=== PATIENT | male | born 1940 | race Caucasian/White ===

== ENCOUNTER 2019-07-02 16:36 | Inpatient (IN) | payer OTHER ==
[~2019-07-02] VITALS: Ht 180.3 cm; Wt 103.7 kg
[2019-07-02] MEDS ORDERED: FUROSEMIDE 40 MG/4 ML VIAL IV ONE (17:45)
[2019-07-02 17:46] LABS: Basophils # (auto) 0 uL; Basophils % (auto) 0.5 % (0.0-2.0); Eosinophils # (auto) 0.3 uL; Hematocrit 39.6 % (41.0-53.0); Hemoglobin 12.3 g/dL (13.5-17.5); Lymphocytes # (auto) 1.3 uL; Lymphocytes % (auto) 21.6 % (10.0-50.0); Mean Corpuscular Hemoglobin 26.2 pg (28.0-32.0); Mean Corpuscular Hgb Conc. 31.1 g/dL (32.0-36.0); Mean Corpuscular Volume 84.2 fL (80.0-100.0); Monocytes # (auto) 0.5 uL; Monocytes % (auto) 8.7 % (0.0-12.0); Neutrophils # (auto) 3.7 uL; Neutrophils % (auto) 64.2 % (37.0-80.0); Nucleated Red Blood Cells % 0.1 %; Platelet Count (auto) 201 10^3/uL (140-450); Red Cell Distribution Width 16.7 % (11.8-14.3); White Blood Cell 5.8 10^3/uL (4.4-10.8)
[2019-07-02 17:56] LABS: Alanine Aminotransferase 36 U/L (16-61); Albumin 3.3 g/dL (3.4-5.0); Anion Gap 7 (5-15); Aspartate Aminotransferase 24 U/L (15-37); BUN/Creatinine Ratio 19.7; Blood Urea Nitrogen 13 mg/dL (7-18); Calcium 8.6 mg/dL (8.5-10.1); Carbon Dioxide 31 mmol/L (21-32); Chloride 103 mmol/L (98-107); GFR African American 150 mL/min; GFR Non-African American 124 mL/min; Glucose 105 mg/dL (74-106); Magnesium 1.8 mg/dL (1.6-2.6); Potassium 3.5 mmol/L (3.5-5.1); Sodium 141 mmol/L (136-145)
[2019-07-02 18:01] LABS: Alkaline Phosphatase 68 U/L (45-117); Bilirubin, Total 1.2 mg/dL (0.2-1.0); Total Protein 6.1 g/dL (6.4-8.2)
[2019-07-02 19:03] LABS: Urine Bacteria NONE SEEN /hpf (None Seen); Urine Blood Negative /uL (Negative); Urine Specific Gravity 1.008 (1.001-1.035); Urine WBC 1 /hpf (0 - 3)
[2019-07-02] MEDS ORDERED: TEMAZEPAM 15 MG CAP PO PRN (21:45)
[2019-07-02] MEDS ORDERED: DEXTROSE (50%) 50ML SYRG IV PRN (21:45)
[2019-07-02] MEDS ORDERED: HYDROcodone-ACET 5/325MG TAB PO PRN (21:45)
[2019-07-02] MEDS ORDERED: ONDANSETRON HCL 4 MG/2 ML VIAL IV PRN (21:45)
[2019-07-02] MEDS ORDERED: ACETAMINOPHEN 325 MG TAB PO PRN (21:45)
[2019-07-02] MEDS ORDERED: MORPHINE SULF INJ 2 MG/ML SYRINGE 1ML IV PRN (21:45)
[2019-07-02] MEDS ORDERED: NITROGLYCERIN 0.4 MG SL TAB SL PRN (21:45)
--- NOTE | 2019-07-02 23:00 | NUR ---
Telemetry admit from ER NATALI IBRAHIM admitted to Telemetry unit. Patient oriented to DWAYNE BUCK RN primary RN, unit, room, bed, and unit policies regarding patient care and visiting hours. Patient now on continuous telemetry monitoring, tele box #40 and telemetry reading on arrival to unit is Afib. Patient placed on bedside oxygen, weighed by bedscale and encouraged to call if they need something. All questions and concerns addressed, patient verbalized understanding.
[2019-07-02 23:05] VITALS: BP 130/87
[2019-07-02 23:24] LABS: INR 1.89 (0.9-1.15); Partial Thromboplastin Time 30.3 sec (23.64-32.05)
[2019-07-02] MEDS: InsuLIN REG 1unit/0.01ml Soln (100units/ml) SC SCH (23:46)
[2019-07-02] MEDS: ACCU-CHEK COMFORT CURVE STRIP VI SCH (23:47)
[2019-07-02] MEDS: FAMOTIDINE 20 MG TAB PO SCH (23:47)
[2019-07-02] MEDS: ATORVASTATIN 20 MG TAB PO SCH (23:47)
[2019-07-03] MEDS ORDERED: INFLUENZA QUAD 2019-2020 0.5ml SYRG IM ONE
[2019-07-03 00:28] VITALS: BP 130/87
[2019-07-03 05:00] VITALS: BP 126/72
[2019-07-03] MEDS: ACCU-CHEK COMFORT CURVE STRIP VI SCH ×3 (05:34→17:58)
[2019-07-03] MEDS: InsuLIN REG 1unit/0.01ml Soln (100units/ml) SC SCH ×3 (05:35→17:58)
[2019-07-03 06:48] LABS: Basophils # (auto) 0 uL; Eosinophils # (auto) 0.3 uL; Lymphocytes # (auto) 1.5 uL; Mean Corpuscular Hgb Conc. 31.7 g/dL (32.0-36.0); Monocytes # (auto) 0.6 uL; Neutrophils # (auto) 3.2 uL; Nucleated Red Blood Cells % 0.1 %; Red Cell Distribution Width 16.9 % (11.8-14.3); White Blood Cell 5.6 10^3/uL (4.4-10.8)
[2019-07-03 06:51] LABS: Basophils % (auto) 0.7 % (0.0-2.0); Eosinophils % (auto) 4.7 % (0.0-7.0); Hemoglobin 11.7 g/dL (13.5-17.5); Lymphocytes % (auto) 26.6 % (10.0-50.0); Mean Corpuscular Hemoglobin 26.4 pg (28.0-32.0); Mean Corpuscular Volume 83.3 fL (80.0-100.0); Monocytes % (auto) 10.7 % (0.0-12.0); Neutrophils % (auto) 57.3 % (37.0-80.0); Platelet Count (auto) 172 10^3/uL (140-450); Red Blood Cells 4.44 10^6/uL (4.5-5.90)
[2019-07-03 07:11] LABS: BUN/Creatinine Ratio 19.4; Calcium 8.7 mg/dL (8.5-10.1); Potassium 3.2 mmol/L (3.5-5.1)
--- NOTE | 2019-07-03 07:30 | NUR ---
Opening Shift Note Assumed care of patient, awake and alert. No S/S of distress/SOB or pain. Instructed on POC and to call for assist PRN, will continue to monitor for changes Q1hr and PRN.
[2019-07-03 08:38] VITALS: BP 127/85
[2019-07-03] MEDS: DILTIAZEM HCL 120MG ER CAP PO SCH (09:39)
[2019-07-03] MEDS: FAMOTIDINE 20 MG TAB PO SCH ×2 (09:40→21:24)
[2019-07-03] MEDS ORDERED: ATENOLOL 50 MG TAB PO SCH (10:00)
[2019-07-03] MEDS ORDERED: POTASSIUM CHL 20 Meq TABLET PO ONE (12:00)
[2019-07-03 12:38] VITALS: BP 121/77
[2019-07-03 13:45] LABS: INR 1.85 (0.9-1.15)
[2019-07-03] MEDS: FUROSEMIDE 40 MG/4 ML VIAL IV SCH (14:22)
[2019-07-03 17:00] VITALS: BP 113/68
[2019-07-03] MEDS ORDERED: WARFARIN SODIUM 2 MG TAB PO ONE (17:00)
--- NOTE | 2019-07-03 19:15 | NUR ---
Opening Shift Note Received report from johnny Butler RN. Assumed care of patient, awake and alert. No S/S of distress/SOB or pain. Instructed on POC and to call for assist PRN, will continue to monitor for changes Q1hr and PRN. Bed placed in lowest position, bed alarm turn on and call light within reach.
--- NOTE | 2019-07-03 19:17 | NUR ---
CLOSING NOTES PT RESTING IN BED. FAMILY AT BEDSIDE. DENIES PAIN OR SOB. VERBALIZED COMFORT. NO DISTRESS NOTED.
[2019-07-03] MEDS: ATORVASTATIN 20 MG TAB PO SCH (21:24)
[2019-07-03 22:48] VITALS: BP 112/63
[2019-07-04] MEDS: ACCU-CHEK COMFORT CURVE STRIP VI SCH ×3 (00:27→12:00)
[2019-07-04 05:00] VITALS: BP 111/72
[2019-07-04] MEDS: InsuLIN REG 1unit/0.01ml Soln (100units/ml) SC SCH ×3 (06:00→12:00)
[2019-07-04 06:25] LABS: INR 1.88 (0.9-1.15)
[2019-07-04 06:27] LABS: Potassium 3.2 mmol/L (3.5-5.1)
[2019-07-04 06:29] LABS: Basophils # (auto) 0 uL; Eosinophils # (auto) 0.3 uL; Neutrophils # (auto) 3.4 uL; Nucleated Red Blood Cells % 0.1 %; White Blood Cell 5.4 10^3/uL (4.4-10.8)
[2019-07-04 06:33] LABS: Basophils % (auto) 0.4 % (0.0-2.0); Eosinophils % (auto) 4.9 % (0.0-7.0); Hematocrit 36.1 % (41.0-53.0); Hemoglobin 11.5 g/dL (13.5-17.5); Lymphocytes % (auto) 19.1 % (10.0-50.0); Mean Corpuscular Hemoglobin 26.5 pg (28.0-32.0); Mean Corpuscular Volume 82.9 fL (80.0-100.0); Monocytes # (auto) 0.7 uL; Monocytes % (auto) 12.4 % (0.0-12.0); Neutrophils % (auto) 63.2 % (37.0-80.0); Platelet Count (auto) 160 10^3/uL (140-450); Red Blood Cells 4.36 10^6/uL (4.5-5.90); Red Cell Distribution Width 16.7 % (11.8-14.3)
[2019-07-04 06:35] LABS: BUN/Creatinine Ratio 23.8; Calcium 8.4 mg/dL (8.5-10.1); Magnesium 2.1 mg/dL (1.6-2.6)
--- NOTE | 2019-07-04 07:50 | NUR ---
Patient sitting on bed, awake, oriented x4, on O2 at 2 LPM. No acute distress noted.
[2019-07-04 09:00] VITALS: BP 127/82
[2019-07-04] MEDS: FUROSEMIDE 40 MG/4 ML VIAL IV SCH (09:58)
[2019-07-04] MEDS: DILTIAZEM HCL 120MG ER CAP PO SCH (09:59)
[2019-07-04] MEDS: FAMOTIDINE 20 MG TAB PO SCH (09:59)
[2019-07-04] MEDS ORDERED: METOPROLOL SUCCINATE XL 50 MG TAB PO SCH (10:00)
--- NOTE | 2019-07-04 10:05 | NUR ---
Dr. Doss came over. made aware patient's Potassium level = 3.[address] Doss ordered Potassium 60 Meq PO once.
--- NOTE | 2019-07-04 10:07 | NUR ---
Patient is ambulatory to the bathroom.
--- NOTE | 2019-07-04 10:11 | NUR ---
Dr. Doss at bedside. MD to discharge the patient today. Unable to obtain patient medications from home.
[2019-07-04] MEDS ORDERED: POTASSIUM CHL 20 Meq TABLET PO ONE (10:15)
--- NOTE | 2019-07-04 11:04 | NUR ---
PT REFUSED PHYSICAL THERAPY, BECAUSE OF GETTING D/C TODAY. MICHELLE KENT WAS NOTIFIED. Addendum: 07/04/19 at 1105 by ISIDRO BENAVIDEZ PTT Amended: Links added.
[2019-07-04 11:43] VITALS: BP 127/82
[2019-07-04 11:56] VITALS: BP 127/82
[2019-07-04] MEDS ORDERED: WARFARIN SODIUM 10 MG TAB PO ONE (17:00)
== END 2019-07-04 12:50 | disposition home or self-care (01) | DRG 293 ==
LOC: ER 16:36 → TELE 16:37 → TELE-CENTR 23:02
PROVIDERS: ADMIT Nurse Practitioner; ATTEND Internal Medicine
DX: I11.0 Hypertensive heart disease with heart failure (principal); I48.91 Unspecified atrial fibrillation; I50.43 Acute on chronic combined systolic (congestive) and diastolic (congestive) heart failure; J44.9 Chronic obstructive pulmonary disease, unspecified; E78.5 Hyperlipidemia, unspecified; E11.9 Type 2 diabetes mellitus without complications; E87.6 Hypokalemia; I35.0 Nonrheumatic aortic (valve) stenosis; Z90.49 Acquired absence of other specified parts of digestive tract; Z23 Encounter for immunization; Z88.0 Allergy status to penicillin
CPT/HCPCS: 36415; 71045; 80048; 80053; 81001; 82962; 83735; 83880; 84484; 85025; 85610; 85730; 93005; 93306; 93971; 94761; 96374; 96376; 99291; G0378

== ENCOUNTER 2020-01-27 13:56 | Inpatient (IN) | payer OTHER ==
[~2020-01-27] VITALS: Ht 177.8 cm; Wt 97.5 kg
[~2020-01-27 13:56] MED LIST: ATOR20TA PO; CITA10TA70 PO; DILT120T3 PO; FURO1TAB31 PO; GLIP5TAB5 PO; OMEP20TA PO; [UNRECOGNIZED DRUG - CODE] PO
[2020-01-27 14:50] LABS: Eosinophils # (auto) 0.2 10 ^3/uL (0-0.8); Lymphocytes # (auto) 1.1 10 ^3/uL (0.4-5.4)
[2020-01-27 14:52] LABS: Basophils # (auto) 0.1 10 ^3/uL (0-0.2); Basophils % (auto) 1.2 % (0.0-2.0); Eosinophils % (auto) 3.9 % (0.0-7.0); Hematocrit 37.6 % (41.0-53.0); Hemoglobin 11.5 g/dL (13.5-17.5); Lymphocytes % (auto) 18.1 % (10.0-50.0); Mean Corpuscular Hemoglobin 23.4 pg (28.0-32.0); Mean Corpuscular Hgb Conc. 30.7 g/dL (32.0-36.0); Mean Corpuscular Volume 76.3 fL (80.0-100.0); Monocytes # (auto) 0.6 10 ^3/uL (0-1.3); Monocytes % (auto) 9.2 % (0.0-12.0); Neutrophils # (auto) 4.1 10 ^3/uL (1.6-8.6); Neutrophils % (auto) 67.6 % (37.0-80.0); Nucleated Red Blood Cells % 0.1 %; Platelet Count (auto) 260 10^3/uL (140-450); Red Blood Cells 4.93 10^6/uL (4.5-5.90); Red Cell Distribution Width 19.3 % (11.8-14.3)
[2020-01-27 15:06] LABS: Alanine Aminotransferase 23 U/L (16-61); Albumin 3.6 g/dL (3.4-5.0); Anion Gap 6 (5-15); Blood Urea Nitrogen 17 mg/dL (7-18); Calcium 9.2 mg/dL (8.5-10.1); Carbon Dioxide 32 mmol/L (21-32); Chloride 101 mmol/L (98-107); Glucose 150 mg/dL (74-106); Magnesium 2.1 mg/dL (1.6-2.6); Potassium 3.1 mmol/L (3.5-5.1); Sodium 139 mmol/L (136-145)
[2020-01-27 15:12] LABS: Alkaline Phosphatase 68 U/L (45-117); Aspartate Aminotransferase 18 U/L (15-37); BUN/Creatinine Ratio 20.2; Bilirubin, Total 1.6 mg/dL (0.2-1.0); GFR African American 114 mL/min; GFR Non-African American 94 mL/min; Total Protein 7.3 g/dL (6.4-8.2)
[2020-01-27] MEDS ORDERED: POTASSIUM CHL 20MEQ/100ML 100 ML IV ONE (15:45)
[2020-01-27] MEDS ORDERED: GABA100C9 PO (15:55)
[2020-01-27] MEDS ORDERED: POTA10TA51 PO (15:55)
[2020-01-27] MEDS ORDERED: WARF5TAB71 PO (15:55)
[2020-01-27] MEDS ORDERED: FUROSEMIDE 20 MG/2 ML VIAL IV ONE (16:00)
[2020-01-27] MEDS ORDERED: MORPHINE SULF INJ 2 MG/ML SYRINGE 1ML IV PRN (16:00)
[2020-01-27] MEDS ORDERED: NITROGLYCERIN 0.4 MG SL TAB SL PRN (16:00)
[2020-01-27] MEDS ORDERED: POTASSIUM CHL 20 Meq TABLET PO ONE (16:00)
[2020-01-27] MEDS ORDERED: DEXTROSE (50%) 50ML SYRG IV PRN (16:00)
[2020-01-27] MEDS: POTASSIUM CHL 20MEQ/100ML 100 ML IV SCH ×2 (16:36→18:29)
[2020-01-27 16:40] LABS: INR 1.62 (0.9-1.15); Partial Thromboplastin Time 28.3 sec (23.64-32.05)
[2020-01-27 17:42] LABS: Urine WBC None Seen /hpf (0 - 3)
[2020-01-27 17:58] LABS: Urine Bacteria NONE SEEN /hpf (None Seen); Urine Blood Negative /uL (Negative); Urine Specific Gravity 1.007 (1.001-1.035)
[2020-01-27] MEDS: ACCU-CHEK COMFORT CURVE STRIP VI SCH ×2 (18:00→22:01)
[2020-01-27] MEDS: InsuLIN REG 1unit/0.01ml Soln (100units/ml) SC SCH ×2 (18:01→22:01)
--- NOTE | 2020-01-27 18:22 | NUR ---
Telemetry admit from ER NATALI IBRAHIM admitted to Telemetry unit after SBAR received. Patient oriented to CORA WHITNEYRN primary RN, unit, 249 room,a bed, and unit policies regarding patient care and visiting hours. Patient now on continuous telemetry monitoring, tele box #9 and telemetry reading on arrival to unit is 89. Patient placed on bedside oxygen, weighed by bedscale and encouraged to call if they need something. Bed locked and in lowest position, side rails up x2, call light with in reach. All questions and concerns addressed, patient verbalized understanding. Note:
--- NOTE | 2020-01-27 18:39 | NUR ---
patient was down in er. Addendum: 01/27/20 at 1839 by CORA WHITNEY RN RN Amended: Links added.
[2020-01-27 18:40] VITALS: BP 110/70
--- NOTE | 2020-01-27 18:52 | NUR ---
RECEIVED PATIENT FROM ER V/S PERFORM PATIENT HAD A TEMPERATURE OF 99.9 ORAL REASSESSED 100.0 CHECKED AXILLIARY 100.7. SPOKE WITH DISPATCH ASSOCIATE HOSPITALIST INFORMED OF PATIENTS TEMPERATURE ORDERS RECEIVED FOR TYLENOL AND BLOOD CULTURES (SEE EMR). COOLING MEASURE STARTED. WILL REASSESS.
[2020-01-27] MEDS ORDERED: ACETAMINOPHEN 325 MG TAB PO PRN (19:00)
--- NOTE | 2020-01-27 19:15 | NUR ---
OPENING NOTE- NOC SHIFT PATIENT IS AWAKE AND ALERT SITTING UP IN BED. NO S/SX OF DISTRESS, SOB OR PAIN. BED IS LOCKED IN LOWEST POSITION, BED RAIL UP X2 AND HEAD OF BED IS UP >30 DEGREES. BEDSIDE TABLE WITHIN REACH, CALL LIGHT WITHIN REACH. DISCUSSED POC WITH PATIENT AND INSTRUCTED PATIENT TO CALL PRN; PATIENT VERBALIZED UNDERSTANDING. WILL CONTINUE TO MONITOR Q1H AND PRN.
--- NOTE | 2020-01-27 19:50 | NUR ---
LAB AT BEDSIDE FOR BLOOD CULTURES.
[2020-01-27] MEDS: IPRATROPIUM BROM 0.5 MG/2.5ML INH SOL NEB SCH (20:12)
[2020-01-27] MEDS: ALBUTEROL SULF 2.5 MG/0.5ML(0.5%) NEB SOLN NEB SCH (20:12)
[2020-01-27 20:15] VITALS: BP 95/70
[2020-01-27 20:31] VITALS: BP 110/70
--- NOTE | 2020-01-27 20:45 | NUR ---
PATIENT UP TO BATHROOM. STEADY GAIT NOTED.
[2020-01-27] MEDS: FUROSEMIDE 40 MG/4 ML VIAL IV SCH (21:57)
[2020-01-27 22:00] VITALS: BP 97/70
[2020-01-27] MEDS ORDERED: GABAPENTIN 100 MG CAP PO SCH (22:00)
[2020-01-27] MEDS ORDERED: ATORVASTATIN 20 MG TAB PO SCH (22:00)
[2020-01-28] MEDS: ALBUTEROL SULF 2.5 MG/0.5ML(0.5%) NEB SOLN NEB SCH ×3 (01:00→11:29)
[2020-01-28] MEDS: IPRATROPIUM BROM 0.5 MG/2.5ML INH SOL NEB SCH ×3 (01:00→11:29)
[2020-01-28] MEDS: FUROSEMIDE 40 MG/4 ML VIAL IV SCH ×2 (05:19→18:30)
[2020-01-28 06:00] VITALS: BP 99/63
[2020-01-28] MEDS: ACCU-CHEK COMFORT CURVE STRIP VI SCH ×3 (06:51→18:29)
[2020-01-28] MEDS: InsuLIN REG 1unit/0.01ml Soln (100units/ml) SC SCH ×3 (06:51→18:31)
--- NOTE | 2020-01-28 06:52 | NUR ---
PATIENT STATED HE WILL HAVE INSULIN IF HE NEEDS IT AFTER BREAKFAST. CURRENT BS 133
[2020-01-28 08:00] VITALS: BP 106/78
[2020-01-28] MEDS ORDERED: POTASSIUM CHLORIDE 8 MEQ TAB PO SCH (10:00)
[2020-01-28] MEDS ORDERED: ATENOLOL PO SCH (10:00)
[2020-01-28] MEDS ORDERED: dilTIAZem 120MG ER CAP PO SCH (10:00)
[2020-01-28] MEDS ORDERED: CHLORTHALIDONE PO SCH (10:00)
[2020-01-28] MEDS ORDERED: OMEPRAZOLE 20MG/10ML ORAL SUSP PO SCH (10:00)
[2020-01-28] MEDS ORDERED: CITALOPRAM HYDROBR 20 MG TAB PO SCH (10:00)
[2020-01-28] MEDS ORDERED: WARF7.5T20 PO (11:54)
[2020-01-28 11:56] LABS: BUN/Creatinine Ratio 20.3; Potassium 3.3 mmol/L (3.5-5.1)
[2020-01-28] MEDS ORDERED: POTA10TA32 PO (11:56)
[2020-01-28] MEDS ORDERED: OMEP-260 PO (11:57)
[2020-01-28] MEDS ORDERED: ALBUAER3 IN (11:58)
[2020-01-28] MEDS ORDERED: DILT120C41 PO (11:59)
[2020-01-28 12:00] VITALS: BP 125/73
[2020-01-28] MEDS ORDERED: GABAPENTIN 100 MG CAP PO SCH (14:07)
--- NOTE | 2020-01-28 15:04 | NUR ---
Assessment Patient is a 79-year-old male who is alert and oriented. Prior to admission patient lived home with his and functioned independently. Patient has a cane and nebulizer for home use. Patient can care for his own ADLs. Per patient he will return home to his prior living arrangements post discharge and will transport him home. Advised patient there is a Social Service consult for home health safety evaluation and outpatient INR checks. Per patient he is on service with [employer] and would like to resume service with kiel. Informed patient clinical information will be faxed to [employer] [facility] and to health plan who will arranged the outpatient INR checks. Informed patient he has a right to participate in all discharge planning. Patient verbalized understanding and agreed to discharge plan home. Per Sofiya with [employer] they will resume service for patient within 24-48hrs upon d/c day. Faxed clinical information to [facility]. Placed call to CRYSTAL Liz advising her [facility] has accepted and patient will need outpatient INR checks. Per CRYSTAL Liz authorization will be given to [employer] [facility]. Addendum: 01/28/[address] DON Amended: Links added.
--- NOTE | 2020-01-28 15:51 | NUR ---
Dr. Phoenix at bedside discussed with patient. Per MD patient is clear from cardiology standpoint.
--- NOTE | 2020-01-28 16:06 | NUR ---
Left a message to Derian DON regarding INR clinic, HH. Awaiting to call back.
--- NOTE | 2020-01-28 16:09 | NUR ---
Per Derian DON, patient will have [facility]. Patient notified.
[2020-01-28 16:59] VITALS: BP 112/71
[2020-01-28] MEDS ORDERED: FURO1TAB31 PO (17:15)
[2020-01-28 17:17] VITALS: BP 112/71
--- NOTE | 2020-01-28 18:30 | NUR ---
Discharge instructions given as ordered. Encourage to follow up with PMD (FOLLOW UP WITH [facility] # [phone]. [address] [place] [address]. FOLLOW UP WITH DR. SCHWARTZ IN A WEEK Address: [address] [place] [address] FOLLOW UP WITH [facility] 1500 ML/DAYS) as instructed. All questions and concerns addressed. Patient verbalized understanding. Medication reconciliation form completed and copy given to patient. Home medications held in Pharmacy returned to patient, and needed vaccines given. IV removed with catheter intact, pressure dressing applied. Telemetry unit returned to ICU. Patient taken to vehicle via wheelchair with all personal belongings, accompanied by staff and family member. No distress noted at time of departure.
== END 2020-01-28 18:38 | disposition home health service (06) | DRG 293 ==
LOC: ER 13:56 → TELE 13:57 → TELE-EAST 18:17
PROVIDERS: ADMIT Internal Medicine; ATTEND Internal Medicine
DX: I11.0 Hypertensive heart disease with heart failure (principal); I42.9 Cardiomyopathy, unspecified; D64.9 Anemia, unspecified; E11.40 Type 2 diabetes mellitus with diabetic neuropathy, unspecified; E78.5 Hyperlipidemia, unspecified; I07.1 Rheumatic tricuspid insufficiency; I35.0 Nonrheumatic aortic (valve) stenosis; I48.0 Paroxysmal atrial fibrillation; F32.9 Major depressive disorder, single episode, unspecified; F41.9 Anxiety disorder, unspecified; J44.9 Chronic obstructive pulmonary disease, unspecified; K21.9 Gastro-esophageal reflux disease without esophagitis; I25.2 Old myocardial infarction; Z79.01 Long term (current) use of anticoagulants; Z82.49 Family history of ischemic heart disease and other diseases of the circulatory system; Z88.0 Allergy status to penicillin; Z79.899 Other long term (current) drug therapy; Z90.49 Acquired absence of other specified parts of digestive tract; I50.23 Acute on chronic systolic (congestive) heart failure; I27.21 Secondary pulmonary arterial hypertension
CPT/HCPCS: 36415; 71045; 80048; 80053; 81001; 82962; 83735; 83880; 84484; 85025; 85610; 85730; 87040; 93005; 94640; 99291; G0378; J1815; J3480

== ENCOUNTER 2020-03-07 02:03 | Inpatient (IN) | payer OTHER ==
[~2020-03-07] VITALS: Ht 175.3 cm; Wt 94.8 kg
[~2020-03-07 02:03] MED LIST changes: +ALBUAER3 IN; +DILT120C41 PO; -DILT120T3 PO; +GABA100C9 PO; +OMEP-260 PO; -OMEP20TA PO; +POTA10TA32 PO; +WARF5TAB71 PO; +WARF7.5T20 PO
[2020-03-07 02:39] LABS: Lymphocytes # (auto) 1.1 10 ^3/uL (0.4-5.4); Monocytes # (auto) 0.7 10 ^3/uL (0-1.3); Monocytes % (auto) 8.7 % (0.0-12.0); Platelet Count (auto) 226 10^3/uL (140-450)
[2020-03-07 02:41] LABS: Basophils # (auto) 0.1 10 ^3/uL (0-0.2); Basophils % (auto) 0.8 % (0.0-2.0); Eosinophils # (auto) 0.2 10 ^3/uL (0-0.8); Eosinophils % (auto) 3.2 % (0.0-7.0); Hematocrit 34.4 % (41.0-53.0); Hemoglobin 10.6 g/dL (13.5-17.5); Mean Corpuscular Hemoglobin 23.3 pg (28.0-32.0); Mean Corpuscular Hgb Conc. 30.7 g/dL (32.0-36.0); Neutrophils # (auto) 5.4 10 ^3/uL (1.6-8.6); Neutrophils % (auto) 72.3 % (37.0-80.0); Nucleated Red Blood Cells % 0.1 %; Red Blood Cells 4.53 10^6/uL (4.5-5.90); Red Cell Distribution Width 19.9 % (11.8-14.3); White Blood Cell 7.5 10^3/uL (4.4-10.8)
[2020-03-07] MEDS ORDERED: ACETAMINOPHEN 325 MG TAB PO ONE (02:45)
[2020-03-07 02:59] LABS: Albumin 3.2 g/dL (3.4-5.0); Calcium 8.5 mg/dL (8.5-10.1); Potassium 4.2 mmol/L (3.5-5.1)
[2020-03-07 03:06] LABS: BUN/Creatinine Ratio 21.3; Bilirubin, Total 1.2 mg/dL (0.2-1.0); Total Protein 6.7 g/dL (6.4-8.2)
[2020-03-07 03:21] LABS: INR 2.36 (0.9-1.15)
[2020-03-07] MEDS ORDERED: DEXTROSE (50%) 50ML SYRG IV PRN (09:30)
[2020-03-07] MEDS ORDERED: MORPHINE SULF INJ 2 MG/ML SYRINGE 1ML IV PRN (09:30)
[2020-03-07] MEDS ORDERED: NITROGLYCERIN 0.4 MG SL TAB SL PRN (09:30)
[2020-03-07] MEDS: POTASSIUM CHL 10 Meq TABLET PO SCH ×2 (10:50→21:50)
[2020-03-07] MEDS: CITALOPRAM HYDROBR 20 MG TAB PO SCH (10:50)
[2020-03-07] MEDS: dilTIAZem 120MG ER CAP PO SCH (10:50)
[2020-03-07] MEDS: ATORVASTATIN 20 MG TAB PO SCH (10:51)
[2020-03-07] MEDS: DIGOXIN 0.25 MG TAB PO SCH (10:51)
[2020-03-07] MEDS: FUROSEMIDE 40 MG/4 ML VIAL IV SCH ×2 (11:20→17:50)
[2020-03-07] MEDS: InsuLIN REG 1unit/0.01ml Soln (100units/ml) SC SCH ×3 (11:30→21:51)
[2020-03-07] MEDS: ACCU-CHEK COMFORT CURVE STRIP VI SCH ×3 (11:47→21:51)
[2020-03-07] MEDS: GABAPENTIN 100 MG CAP PO SCH ×2 (14:25→21:51)
[2020-03-07 16:55] VITALS: BP 134/77
[2020-03-07 18:00] VITALS: BP 104/72
--- NOTE | 2020-03-07 19:10 | NUR ---
Opening Shift Note Received report from johnny Neal RN. Assumed care of patient, awake and alert. No S/S of distress/SOB or pain. Instructed on POC and to call for assist PRN, will continue to monitor for changes Q1hr and PRN. Bed placed in lowest position, bed alarm turned on and call light within reach.
[2020-03-07 20:00] VITALS: BP 114/74
--- NOTE | 2020-03-07 22:00 | NUR ---
Patient's blood sugar is 99. Provided juice and crackers per patient's request.
[2020-03-07 22:07] VITALS: BP 114/74
[2020-03-08 05:13] VITALS: BP 100/55
[2020-03-08] MEDS: FUROSEMIDE 40 MG/4 ML VIAL IV SCH ×2 (05:33→17:31)
[2020-03-08] MEDS: GABAPENTIN 100 MG CAP PO SCH ×3 (05:34→22:07)
[2020-03-08 05:43] LABS: INR 1.97 (0.9-1.15)
[2020-03-08 05:46] LABS: Calcium 8.4 mg/dL (8.5-10.1); Potassium 3.5 mmol/L (3.5-5.1)
[2020-03-08 05:50] LABS: BUN/Creatinine Ratio 27.7
[2020-03-08] MEDS: ACCU-CHEK COMFORT CURVE STRIP VI SCH ×4 (06:26→22:08)
[2020-03-08] MEDS: InsuLIN REG 1unit/0.01ml Soln (100units/ml) SC SCH ×4 (06:28→22:00)
--- NOTE | 2020-03-08 06:34 | NUR ---
ROUNDS Patient is alert and oriented, resting in bed with eyes closed, no distress noted saturating 97% on 3LNC, and denies pain.
--- NOTE | 2020-03-08 07:30 | NUR ---
Opening Shift Note RECEIVED REPORT FROM NOC RN. Assumed care of patient, awake and alert. PATIENT ON OXYGEN AT 3 LPM VIA NASAL CANNULA WITH no S/S of distress/SOB or pain. BED IN LOWEST, LOCKED POSITION WITH SIDERAILS UP x2 AND CALL LIGHT WITHIN REACH. Instructed on POC and to call for assist PRN, will continue to monitor for changes Q1hr and PRN.
[2020-03-08 09:00] VITALS: BP 107/71
[2020-03-08] MEDS: dilTIAZem 120MG ER CAP PO SCH (10:11)
[2020-03-08] MEDS: DIGOXIN 0.25 MG TAB PO SCH (10:12)
[2020-03-08] MEDS: CITALOPRAM HYDROBR 20 MG TAB PO SCH (10:12)
[2020-03-08] MEDS: POTASSIUM CHL 10 Meq TABLET PO SCH ×2 (10:12→22:04)
[2020-03-08] MEDS: ATORVASTATIN 20 MG TAB PO SCH (10:12)
[2020-03-08 13:00] VITALS: BP_SYST 119; BP_SYST 146; BP_DIAS 68; BP_DIAS 79
[2020-03-08] MEDS ORDERED: ACETAMINOPHEN 325 MG TAB PO PRN (13:30)
[2020-03-08] MEDS ORDERED: PHYTONADIONE(VitK) ORAL Susp 10mg/10ml(1mg/ml) PO ONE (16:00)
[2020-03-08] MEDS ORDERED: POTASSIUM CHL 20 Meq TABLET PO ONE (16:30)
[2020-03-08 17:01] VITALS: BP 114/58
--- NOTE | 2020-03-08 20:00 | NUR ---
RECEIVED PATIENT FROM DAY SHIFT RN. PATIENT RESTING IN BED. NO S/S OF DISTRESS NOTED. PATIENT SOB AFTER BACK FROM BATHROOM. PUT PATIENT BACK ON OXYGEN. REINFORCED PATIENT NPO AFTER MIDNIGHT FOR PROCEDURE TOMORROW. POC INSTRUCTED AND ENCOURAGED PATIENT TO CALL FOR FIRE INVESTIGATOR IF NEEDED. BED IN LOWEST POSITION WITH SIDE RAILS UP X 2. CALL VANCE WITHIN REACH. ALARM ON. CONTINUE TO MONITOR FOR CHANGES Q1H AND PRN.
[2020-03-08 21:13] VITALS: BP 102/66
--- NOTE | 2020-03-08 22:10 | NUR ---
ACCU-CHECK, BS 110. NO COVERAGE. CONTINUE TO MONITOR.
--- NOTE | 2020-03-09 00:17 | NUR ---
NPO FROM NOW. WATER AND FOOD REMOVED FROM BEDSIDE. CONTINUE CARE.
--- NOTE | 2020-03-09 03:27 | NUR ---
PATIENT SLEEPING. NO S/S OF DISTRESS NOTED. CONTINUE TO MONITOR.
[2020-03-09 05:00] VITALS: BP 109/72
[2020-03-09] MEDS: GABAPENTIN 100 MG CAP PO SCH ×3 (06:00→21:33)
[2020-03-09] MEDS: FUROSEMIDE 40 MG/4 ML VIAL IV SCH ×2 (06:28→17:34)
[2020-03-09] MEDS: InsuLIN REG 1unit/0.01ml Soln (100units/ml) SC SCH ×4 (06:29→21:35)
[2020-03-09] MEDS: ACCU-CHEK COMFORT CURVE STRIP VI SCH ×4 (06:29→21:33)
--- NOTE | 2020-03-09 06:29 | NUR ---
ACCU-CHECK, BS 132. PATIENT IS NPO, NO COVERAGE AT THIS TIME. PATIENT UNDERSTOOD NPO FOR NOW. CONTINUE TO MONITOR.
[2020-03-09 07:11] LABS: INR 1.44 (0.9-1.15); Partial Thromboplastin Time 28.5 sec (23.64-32.05)
--- NOTE | 2020-03-09 07:30 | NUR ---
Opening Shift Note Assumed care of patient, awake and alert. No S/S of distress/SOB or pain. Instructed on POC and to call for assist PRN, will continue to monitor for changes Q1hr and PRN. Bed locked in lowest position with two side rails up and call light in reach.
[2020-03-09 08:00] VITALS: BP 97/51
[2020-03-09 09:00] VITALS: BP 106/85
--- NOTE | 2020-03-09 11:48 | NUR ---
PATIENT ARRIVED IN [place].S. PER WC WITH O2 @ 2L PER NC FOR THORACENTESIS BASELINE VS BP 116/87, HR 98, RESP 15, SAO2 100% 1203 HR 110, RR 22, SAO2 99%, BP 108/75 1208 HR 100, RR 23, SAO2 100 %, BP 105/65 1213 HR 112, RR 26, SAO2 99%, BP 100/57 1214 PATIENT C/O STERNAL PAIN 7/10 WITH DEEP INSPIRATION AND COUGHING NOTED. PROCEDURE TERMINATED DUE TO C/O PAIN. STERILE DRSG APPLIED WITH VASELINE GAUZE. CXR OBTAINED. DR YOUNG NOTIFIED. 1600 ML EDOUARD FLUID OBTAINED. FLUID TAKEN TO LAB FOR PATHOLOGY. 1227 REPORT GIVEN TO JOHNATHAN MARTINEZ.
[2020-03-09 12:30] VITALS: BP 115/66
[2020-03-09] MEDS: DIGOXIN 0.25 MG TAB PO SCH (12:30)
[2020-03-09] MEDS: dilTIAZem 120MG ER CAP PO SCH (12:30)
[2020-03-09] MEDS: CITALOPRAM HYDROBR 20 MG TAB PO SCH (13:09)
[2020-03-09] MEDS: POTASSIUM CHL 10 Meq TABLET PO SCH ×2 (13:09→21:33)
[2020-03-09] MEDS: ATORVASTATIN 20 MG TAB PO SCH (13:09)
--- NOTE | 2020-03-09 14:30 | NUR ---
PER PETE RADIOLOGIST NURSE, PATIENT HAS 1600 CC OUT AND DID NOT TOLERATE WELL. PATIENT PER PETE WAS COUGHING AND COMPLAINING OF SUBSTERNAL CHEST PAIN. PATIENT IS NOW ON FLOOR EATING ON 2 L NC AND IS UNDER NO S/S OF DISTRESS OR SOB. WILL CONTINUE TO MONITOR.
--- NOTE | 2020-03-09 16:26 | NUR ---
PATIENT ON ROOM AIR SATURATION IS 89-93 % PATIENT STAYS MOSTLY AROUND 93%.
[2020-03-09 16:53] VITALS: BP 106/65
--- NOTE | 2020-03-09 18:42 | NUR ---
PAGED AND LEFT MESSAGE FOR DR DERAS REGARDING PATIENTS ABG RESULTS AND HOME O2. WILL AWAIT CALL BACK FOR ORDERS ON DISCHARGING OR KEEPING PATIENT ANOTHER DAY.
--- NOTE | 2020-03-09 19:23 | NUR ---
RECEIVED PATIENT FROM DAY SHIFT RN. PATIENT RESTING IN BED. NO S/S OF DISTRESS NOTED. DENIED PAIN FOR NOW. DRESSING ON LEFT LOWER BACK D/I. O2 SAT 92% ON 2L/NC. POC INSTRUCTED AND ENCOURAGED PATIENT TO CALL FOR PIT FURNACE MELTER IF NEEDED. BED IN LOWEST POSITION WITH SIDE RAILS UP X 2. CALL VANCE WITHIN REACH. ALARM ON. CONTINUE TO MONITOR FOR CHANGES Q1H AND PRN.
--- NOTE | 2020-03-09 20:47 | NUR ---
MD DERAS CALLED BACK FOR ANOTHER PATIENT. TALKED TO MD DERAS, UPDATED ON PATIENT'S CURRENT SITUATION. MD DERAS ORDERED SS FOR HOME O2 ARRANGEMENT AND D/C PATIENT TOMORROW MORNING.CONTINUE TO MONITOR.
--- NOTE | 2020-03-09 21:51 | NUR ---
ACCU-CHECK, BS 178. INSULIN GIVEN ORDERED. CONTINUE TO MONITOR.
[2020-03-09 22:00] VITALS: BP 108/63
--- NOTE | 2020-03-10 02:05 | NUR ---
PATIENT SLEEPING. NO S/S OF DISTRESS NOTED. CONTINUE CARE.
[2020-03-10 05:00] VITALS: BP 107/66
[2020-03-10] MEDS: ACCU-CHEK COMFORT CURVE STRIP VI SCH ×2 (06:37→11:47)
[2020-03-10] MEDS: FUROSEMIDE 40 MG/4 ML VIAL IV SCH (06:37)
[2020-03-10] MEDS: GABAPENTIN 100 MG CAP PO SCH ×2 (06:37→14:27)
[2020-03-10] MEDS: InsuLIN REG 1unit/0.01ml Soln (100units/ml) SC SCH ×2 (06:38→11:49)
--- NOTE | 2020-03-10 06:38 | NUR ---
ACCU-CHECK, BS 133. INSULIN GIVEN ORDERED. CONTINUE TO MONITOR.
--- NOTE | 2020-03-10 07:30 | NUR ---
Opening Shift Note Assumed care of patient, who is alert and oriented x4. Respirations are even and unlabored. No S/S of distress/SOB or pain. Bed is low, locked with 2x side rails up. Call light is within reach. Instructed on POC and to call for assist PRN, will continue to monitor for changes Q1hr and PRN.
[2020-03-10 09:00] VITALS: BP 98/59
[2020-03-10] MEDS: ATORVASTATIN 20 MG TAB PO SCH (09:18)
[2020-03-10] MEDS: POTASSIUM CHL 10 Meq TABLET PO SCH (09:18)
[2020-03-10] MEDS: DIGOXIN 0.25 MG TAB PO SCH (09:18)
[2020-03-10] MEDS: dilTIAZem 120MG ER CAP PO SCH (09:19)
[2020-03-10] MEDS: CITALOPRAM HYDROBR 20 MG TAB PO SCH (09:19)
--- NOTE | 2020-03-10 11:19 | NUR ---
[facility] for Dr. Ware Spoke with the patient's . Per she stated that Dr. Parra (surgeon from [place]) is requesting a breathing capacity test, evaluation of wheezing and pulmonary function test because patient has a valve replacement surgery coming up. Left voicemail with Dr. Ware. Waiting for a call back.
--- NOTE | 2020-03-10 11:31 | NUR ---
Spoke to case management Spoke to Kai regarding SS consult for case management to call [facility] to set up home O2. She will call back when she has more information regarding set up for today. Case management aware of DC order for today.
[2020-03-10 12:47] VITALS: BP 120/67
[2020-03-10] MEDS ORDERED: WARFARIN SODIUM 2.5 MG TAB PO ONE (13:00)
--- NOTE | 2020-03-10 15:16 | NUR ---
Assessment Patient is a 79-year-old male who is alert and oriented. Prior to admission patient lived home with his and functioned independently. Patient has a cane and nebulizer for home use. Patient can care for his own ADLs. Per patient he will return home to his prior living arrangements post discharge and will transport him home. Advised patient there is a Social Service consult for home oxygen at 2l/min. Informed patient clinical information will be faxed to and [facility]. Informed patient he has a right to participate in all discharge planning. Patient verbalized understanding and agreed to discharge plan home. Per Adriana with portable oxygen will be deliver to [facility]. Faxed clinical information to [facility]. Placed call to CRYSTAL Liz advising her patient has orders for home oxygen. Per CRYSTAL Liz authorization will be given to [id number]. Informed MICHELLE Campos. Addendum: 03/10/[address] DON Amended: Links added.
--- NOTE | 2020-03-10 15:50 | NUR ---
Oxygen delivered Educated patient on proper use of home oxygen. All questions answered. Will continue to monitor.
--- NOTE | 2020-03-10 16:29 | NUR ---
Discharge instructions given as ordered. Encourage to follow up with PMD as instructed. All questions and concerns addressed. Patient verbalized understanding. IV removed with catheter intact, pressure dressing applied. Telemetry unit returned to ICU. Patient taken to vehicle via wheelchair with all personal belongings, accompanied by staff. No distress noted at time of departure.
== END 2020-03-10 16:28 | disposition home or self-care (01) | DRG 291 ==
LOC: EDBD 02:03 → ER 02:08 → TELE 02:09 → TELE-WESTW 16:56
PROVIDERS: ADMIT Hospitalist; ATTEND Hospitalist
PROC: 0W9B3ZZ Drainage of Left Pleural Cavity, Percutaneous Approach (ICD-10-PCS; principal; 2020-03-09)
DX: I11.0 Hypertensive heart disease with heart failure (principal); J96.21 Acute and chronic respiratory failure with hypoxia; J90 Pleural effusion, not elsewhere classified; I48.20 Chronic atrial fibrillation, unspecified; I50.43 Acute on chronic combined systolic (congestive) and diastolic (congestive) heart failure; I44.7 Left bundle-branch block, unspecified; E11.9 Type 2 diabetes mellitus without complications; I35.0 Nonrheumatic aortic (valve) stenosis; E78.5 Hyperlipidemia, unspecified; J44.9 Chronic obstructive pulmonary disease, unspecified; Z82.49 Family history of ischemic heart disease and other diseases of the circulatory system; Z79.01 Long term (current) use of anticoagulants; Z83.3 Family history of diabetes mellitus; Z90.49 Acquired absence of other specified parts of digestive tract; I42.8 Other cardiomyopathies
CPT/HCPCS: 32555; 36415; 36600; 71045; 76604; 76942; 80048; 80053; 82805; 82962; 83735; 83880; 84484; 85025; 85610; 85730; 87070; 87205; 89051; 93005; 93306; G0378; J1815

== ENCOUNTER 2020-04-08 11:06 | Inpatient (IN) | payer OTHER ==
[~2020-04-08] VITALS: Ht 180.3 cm; Wt 96.6 kg
--- NOTE | 2020-04-08 04:14 | NUR ---
Telemetry admit from ER NATALI IBRAHIM admitted to Telemetry. Patient oriented to ADDISON LOMAS, primary RN, unit, room, bed, and unit policies regarding patient care and visiting hours. Patient now on continuous telemetry monitoring, tele box #61 and telemetry reading on arrival to unit is Afib. Patient placed on bedside oxygen, weighed by bedscale and encouraged to call if they need something. Call light explained and placed within reach. All questions and concerns addressed, patient verbalized understanding.
[2020-04-08 12:24] LABS: Basophils # (auto) 0 10 ^3/uL (0-0.2); Eosinophils # (auto) 0.2 10 ^3/uL (0-0.8); Hematocrit 30.8 % (41.0-53.0); Lymphocytes # (auto) 0.7 10 ^3/uL (0.4-5.4); Lymphocytes % (auto) 12.5 % (10.0-50.0); Monocytes # (auto) 0.6 10 ^3/uL (0-1.3); Neutrophils # (auto) 4.3 10 ^3/uL (1.6-8.6); White Blood Cell 5.9 10^3/uL (4.4-10.8)
[2020-04-08 12:25] LABS: Basophils % (auto) 0.7 % (0.0-2.0); Eosinophils % (auto) 3.5 % (0.0-7.0); Hemoglobin 9.1 g/dL (13.5-17.5); Mean Corpuscular Hemoglobin 21.8 pg (28.0-32.0); Mean Corpuscular Hgb Conc. 29.5 g/dL (32.0-36.0); Mean Corpuscular Volume 74.1 fL (80.0-100.0); Monocytes % (auto) 10.4 % (0.0-12.0); Neutrophils % (auto) 72.9 % (37.0-80.0); Platelet Count (auto) 210 10^3/uL (140-450); Red Blood Cells 4.16 10^6/uL (4.5-5.90); Red Cell Distribution Width 20.4 % (11.8-14.3)
[2020-04-08 12:39] LABS: Albumin 3.3 g/dL (3.4-5.0); Calcium 8.7 mg/dL (8.5-10.1); Potassium 3.3 mmol/L (3.5-5.1)
[2020-04-08 12:42] LABS: INR 3.36 (0.9-1.15); Partial Thromboplastin Time 36.6 sec (23.0-31.2)
[2020-04-08 12:44] LABS: BUN/Creatinine Ratio 27.3; Bilirubin, Total 1.3 mg/dL (0.2-1.0); Total Protein 6.1 g/dL (6.4-8.2)
[2020-04-08] MEDS ORDERED: IPRATROPIUM BROM 0.5 MG/2.5ML INH SOL NEB PRN (14:15)
[2020-04-08] MEDS ORDERED: MORPHINE SULF INJ 2 MG/ML SYRINGE 1ML IV PRN (14:15)
[2020-04-08] MEDS ORDERED: NITROGLYCERIN 0.4 MG SL TAB SL PRN (14:15)
[2020-04-08] MEDS ORDERED: levoFLOXacin 500MG 100 ML IV ONE (14:15)
[2020-04-08] MEDS ORDERED: DEXTROSE (50%) 50ML SYRG IV PRN (14:15)
[2020-04-08] MEDS ORDERED: PHYTONADIONE(VitK) ORAL Susp 10mg/10ml(1mg/ml) PO ONE (14:15)
[2020-04-08] MEDS ORDERED: ALBUTEROL SULF 2.5 MG/0.5ML(0.5%) NEB SOLN NEB PRN (14:15)
[2020-04-08 15:52] LABS: INR 3.29 (0.9-1.15); Partial Thromboplastin Time 36.8 sec (23.0-31.2)
[2020-04-08] MEDS ORDERED: AMIO200T33 PO (15:58)
[2020-04-08] MEDS ORDERED: DIGO0.25 PO (15:59)
[2020-04-08] MEDS: FUROSEMIDE 40 MG/4 ML VIAL IV SCH (16:17)
[2020-04-08] MEDS: ACCU-CHEK COMFORT CURVE STRIP VI SCH (18:30)
[2020-04-08] MEDS: InsuLIN REG 1unit/0.01ml Soln (100units/ml) SC SCH (18:31)
[2020-04-08 21:50] VITALS: BP 116/76
[2020-04-08] MEDS: ATORVASTATIN 20 MG TAB PO SCH (22:40)
[2020-04-08] MEDS: AMIODARONE HCL 200 MG TAB PO SCH (22:40)
[2020-04-08] MEDS: GABAPENTIN 100 MG CAP PO SCH (22:40)
--- NOTE | 2020-04-08 23:04 | NUR ---
PT ASSESSED FOR PRN MED NEB TX. SPO2 97% ON 2L NC, HR 72. PT DENIES ANY RESPIRATORY DISTRESS. NO TX INDICATED. PT IS AWARE TO HAVE RT PAGED IF TX NEEDED.
[2020-04-09] VITALS (13 sets, daily range): BP systolic 96–137; BP diastolic 46–79
[2020-04-09] MEDS: ACCU-CHEK COMFORT CURVE STRIP VI SCH ×5 (00:47→21:12)
[2020-04-09] MEDS: InsuLIN REG 1unit/0.01ml Soln (100units/ml) SC SCH ×5 (00:48→21:13)
--- NOTE | 2020-04-09 02:00 | NUR ---
Plasma transfusion complete Patient showed no S/S of adverse reaction during transfusion. Vital signs remained stable. Will continue to monitor.
[2020-04-09] MEDS: FUROSEMIDE 40 MG/4 ML VIAL IV SCH ×2 (06:47→18:16)
[2020-04-09 07:26] LABS: Basophils # (auto) 0 10 ^3/uL (0-0.2); Eosinophils # (auto) 0.2 10 ^3/uL (0-0.8); Eosinophils % (auto) 4.1 % (0.0-7.0); Hematocrit 29.2 % (41.0-53.0); Lymphocytes # (auto) 0.6 10 ^3/uL (0.4-5.4); Lymphocytes % (auto) 10.3 % (10.0-50.0); Mean Corpuscular Hemoglobin 22.3 pg (28.0-32.0); Mean Corpuscular Volume 74.6 fL (80.0-100.0)
[2020-04-09 07:28] LABS: Basophils % (auto) 0.4 % (0.0-2.0); Hemoglobin 8.8 g/dL (13.5-17.5); Monocytes # (auto) 0.6 10 ^3/uL (0-1.3); Monocytes % (auto) 11.6 % (0.0-12.0); Neutrophils % (auto) 73.6 % (37.0-80.0); Nucleated Red Blood Cells % 0.1 %; Platelet Count (auto) 194 10^3/uL (140-450); Red Blood Cells 3.92 10^6/uL (4.5-5.90); Red Cell Distribution Width 19.8 % (11.8-14.3); White Blood Cell 5.4 10^3/uL (4.4-10.8)
[2020-04-09 07:37] LABS: Albumin 2.9 g/dL (3.4-5.0); Calcium 8.5 mg/dL (8.5-10.1); Potassium 3.3 mmol/L (3.5-5.1)
[2020-04-09 07:39] LABS: BUN/Creatinine Ratio 28.1
[2020-04-09 07:42] LABS: Bilirubin, Total 1.6 mg/dL (0.2-1.0)
[2020-04-09 07:46] LABS: INR 2.12 (0.9-1.15); Partial Thromboplastin Time 32.7 sec (23.0-31.2)
--- NOTE | 2020-04-09 08:33 | NUR ---
ARBEN KOTHARI REGARDING INR. AWAITING CALL BACK.
[2020-04-09] MEDS: POTASSIUM CHL 10 Meq TABLET PO SCH (09:44)
[2020-04-09] MEDS: DIGOXIN 0.25 MG TAB PO SCH (09:45)
[2020-04-09] MEDS: ATENOLOL 25 MG TAB PO SCH (09:45)
[2020-04-09] MEDS: AMIODARONE HCL 200 MG TAB PO SCH ×2 (09:45→21:12)
[2020-04-09] MEDS: GABAPENTIN 100 MG CAP PO SCH ×2 (09:45→21:12)
--- NOTE | 2020-04-09 10:12 | NUR ---
Per blood bank okay to give AB positive to patient who is A positive.
--- NOTE | 2020-04-09 14:43 | NUR ---
Nutrition Consult/Assessment Notes Please refer to link for full assessment notes. Est Energy needs: 1400- kcals (20-23 kcal/kgBW) Est Protein needs: 96-105 gms/day (1.0-1.1 gm/kgBW) Will continue to monitor and reassess prn. Addendum: 04/09/20 at [address] Amended: Links added.
[2020-04-09] MEDS: levoFLOXacin 500MG 100 ML IV SCH (14:50)
[2020-04-09 15:12] LABS: INR 1.62 (0.9-1.15); Partial Thromboplastin Time 29.4 sec (23.0-31.2)
--- NOTE | 2020-04-09 15:43 | NUR ---
CALLED AND SPOKE TO [facility] TO INFORM OF PATIENTS LABS COMING BACK. INFORMED OF INR AND STATED SHE WILL SPEAK TO Judith YOUNG.
--- NOTE | 2020-04-09 15:59 | NUR ---
PER PETE PATIENT WILL BE WHEELED DOWN FOR THORACENTESIS IN 20 MINUTES.
--- NOTE | 2020-04-09 16:37 | NUR ---
PATIENT WHEELED DOWN FOR THORACENTESIS. NO S/S OF DISTRESS NOTED AT THIS TIME.
--- NOTE | 2020-04-09 16:45 | NUR ---
PATIENT ARRIVED PER WITH O2 ON @ 2L PER NC, INFORMED CONSENT FOR PROCEDURE OBTAINED BASELINE VS HR 62 RR 20 SAO2 99% 111/69 1700 HR 68 RR 17 SAO2 99% BP 121/67 PATIENT TOLERATED WELL WITH MILD COUGHING NOTED SM AMT BLEEDING NOTED AT INSERTION SITE FOLLOWING PROCEDURE - MANUAL PRESSURE APPLIED X 10 MIN. S/P THORA CXR ORDERED 1850 ML CLEAR DARK EDOUARD LIQ OBTAINED AND TAKEN TO LAB PER ORDERS
[2020-04-09] MEDS: POTASSIUM CHL 20MEQ/100ML 100 ML IV SCH ×2 (17:30→19:00)
--- NOTE | 2020-04-09 17:36 | NUR ---
PATIENT ARRIVED BACK TO UNIT. NO S/S OF DISTRESS NOTED. DRESSING TO LEFT BACK CLEAN DRY AND INTACT. PATIENT ON 2LNC. WILL CONTINUE TO MONITOR.
--- NOTE | 2020-04-09 18:49 | NUR ---
ARBEN BELLO REGARDING PATIENT STATUS PER HIS REQUEST.
[2020-04-09] MEDS: ATORVASTATIN 20 MG TAB PO SCH (21:12)
[2020-04-10 05:00] VITALS: BP 105/67
[2020-04-10] MEDS: FUROSEMIDE 40 MG/4 ML VIAL IV SCH (06:07)
[2020-04-10] MEDS: InsuLIN REG 1unit/0.01ml Soln (100units/ml) SC SCH ×2 (06:24→11:30)
[2020-04-10] MEDS: ACCU-CHEK COMFORT CURVE STRIP VI SCH ×2 (06:25→11:54)
--- NOTE | 2020-04-10 08:00 | NUR ---
Opening Shift Note Assumed care of patient, awake and alert. No S/S of distress/SOB or pain. Instructed on POC and to call for assist PRN, will continue to monitor for changes Q1hr and PRN.
[2020-04-10 09:00] VITALS: BP 93/50
--- NOTE | 2020-04-10 09:17 | NUR ---
PT ASSESSED FOR PRN HHN TX. PT IS ON 3LNC, SPO2 93%, HR 77, RR 18. NO S/S OF RESPIRATORY DISTRESS. PT STATES HIS BREATHING FEELS MUCH BETTER AFTER HIS LUNGS WERE DRAINED. PT AWARE TO HAVE RT PAGED IF TX INDICATED. WILL CONTINUE TO MONITOR.
[2020-04-10] MEDS: DIGOXIN 0.25 MG TAB PO SCH (10:01)
[2020-04-10] MEDS: POTASSIUM CHL 10 Meq TABLET PO SCH (10:01)
[2020-04-10] MEDS: GABAPENTIN 100 MG CAP PO SCH (10:01)
[2020-04-10] MEDS: levoFLOXacin 500MG 100 ML IV SCH (10:01)
[2020-04-10] MEDS: ATENOLOL 25 MG TAB PO SCH (10:01)
[2020-04-10] MEDS: AMIODARONE HCL 200 MG TAB PO SCH (10:01)
[2020-04-10 13:00] VITALS: BP 101/67
[2020-04-10 15:28] VITALS: BP 101/67
--- NOTE | 2020-04-10 15:28 | NUR ---
Assessment Patient is a 79-year-old male who is alert and oriented. Prior to admission patient lived home with his and functioned independently. Patient has a cane home oxygen and nebulizer for home use. Patient can care for his own ADLs. Per patient he will return home to his prior living arrangements post discharge and will transport him home. Advised patient there is a Social service consult for home health safety evaluation, daily INR checks x 7 days via home visiting nurse or Coumadin clinic and to be refer to the HARP Program. Informed patient clinical information will be faxed to a contracted home health agency and [facility]. Informed patient he has a right to participate in all discharge planning. Patient verbalized understanding and agreed to discharge plan home. Faxed clinical information to [facility] and [facility]. Placed call to CRYSTAL Liz with [facility] regarding order for home health, INR checks and refer to the HARP program. Per CRYSTAL Liz home health can see patient for INR and the will refer patient to the Coumadin clinic and HARP program. Per Sofiya with [facility] they can accept patient and will see patient within 24-48hrs upon d/c day. Addendum: 04/10/[address] GILES Amended: Links added.
--- NOTE | 2020-04-10 16:25 | NUR ---
Discharge instructions given as ordered. Encourage to follow up with PMD Dr. Clint Xie in 3-5 days #[phone] located at [address] [place] [address] as instructed. Follow up with Dr. Flores book publisher and Dr. Coto paintings conservator in 1-2 weeks. Patient will be followed up by [facility] post discharge. All questions and concerns addressed. Patient verbalized understanding. Medication reconciliation form completed and copy given to patient. IV removed with catheter intact, pressure dressing applied. Telemetry unit returned to ICU. Patient taken to vehicle via wheelchair with all personal belongings, accompanied by staff and family member. No distress noted at time of departure.
--- NOTE | 2020-04-10 16:41 | NUR ---
D/C planning Per Sofiya with [facility] they are unable to do daily INR at this time. Order was redirected to [facility]. per Olya with [facility] they will see patient within 24hrs upon d/c day. Faxed clinical information to [facility] and contact CRYSTAL Liz. informing her [facility] has accepted patient.
== END 2020-04-10 16:20 | disposition home health service (06) | DRG 292 ==
LOC: ER 11:06 → TELE 11:07 → TELE-WESTW 21:45
PROVIDERS: ADMIT Internal Medicine; ATTEND Internal Medicine
PROC: 30233K1 Transfusion of Nonautologous Frozen Plasma into Peripheral Vein, Percutaneous Approach (ICD-10-PCS; principal; 2020-04-09)
PROC: 0W9B3ZZ Drainage of Left Pleural Cavity, Percutaneous Approach (ICD-10-PCS; 2020-04-09)
DX: I11.0 Hypertensive heart disease with heart failure (principal); J91.8 Pleural effusion in other conditions classified elsewhere; J96.11 Chronic respiratory failure with hypoxia; I50.23 Acute on chronic systolic (congestive) heart failure; I42.9 Cardiomyopathy, unspecified; I35.0 Nonrheumatic aortic (valve) stenosis; E87.6 Hypokalemia; I48.0 Paroxysmal atrial fibrillation; F32.9 Major depressive disorder, single episode, unspecified; D50.9 Iron deficiency anemia, unspecified; K21.9 Gastro-esophageal reflux disease without esophagitis; E11.40 Type 2 diabetes mellitus with diabetic neuropathy, unspecified; E78.5 Hyperlipidemia, unspecified; J44.9 Chronic obstructive pulmonary disease, unspecified; Z79.01 Long term (current) use of anticoagulants; Z82.49 Family history of ischemic heart disease and other diseases of the circulatory system; Z88.0 Allergy status to penicillin
CPT/HCPCS: 10022; 36415; 71045; 71046; 76942; 80053; 82962; 83735; 83880; 83986; 84484; 85025; 85610; 85730; 86850; 86900; 86901; 87081; 87205; 89051; 93005; 96365; 96375; G0378; J1815; J1956; J3480

== ENCOUNTER 2020-06-26 17:07 | Inpatient (IN) | payer OTHER ==
[~2020-06-26] VITALS: Ht 180.3 cm; Wt 92.8 kg
[~2020-06-26 17:07] MED LIST changes: -ALBUAER3 IN; +AMIO200T33 PO; +DIGO0.25 PO; -DILT120C41 PO; -[UNRECOGNIZED DRUG - CODE] PO
[2020-06-26 19:04] LABS: Basophils # (auto) 0 10 ^3/uL (0-0.2); Basophils % (auto) 0.7 % (0.0-2.0); Eosinophils # (auto) 0.2 10 ^3/uL (0-0.8); Eosinophils % (auto) 5.2 % (0.0-7.0); Hematocrit 30.9 % (41.0-53.0); Hemoglobin 9.4 g/dL (13.5-17.5); Lymphocytes # (auto) 0.4 10 ^3/uL (0.4-5.4); Lymphocytes % (auto) 9.5 % (10.0-50.0); Mean Corpuscular Hemoglobin 22.3 pg (28.0-32.0); Mean Corpuscular Hgb Conc. 30.3 g/dL (32.0-36.0); Mean Corpuscular Volume 73.4 fL (80.0-100.0); Monocytes # (auto) 0.5 10 ^3/uL (0-1.3); Monocytes % (auto) 11.1 % (0.0-12.0); Neutrophils # (auto) 3.3 10 ^3/uL (1.6-8.6); Neutrophils % (auto) 73.5 % (37.0-80.0); Platelet Count (auto) 197 10^3/uL (140-450); Red Blood Cells 4.21 10^6/uL (4.5-5.90); White Blood Cell 4.5 10^3/uL (4.4-10.8)
[2020-06-26 19:14] LABS: INR 1.93 (0.9-1.15); Partial Thromboplastin Time 31.3 sec (23.0-31.2)
[2020-06-26 19:20] LABS: Blood Urea Nitrogen 20 mg/dL (7-18); Calcium 8.8 mg/dL (8.5-10.1); Carbon Dioxide 35 mmol/L (21-32); Glucose 165 mg/dL (74-106); Magnesium 2.1 mg/dL (1.6-2.6)
[2020-06-26] MEDS ORDERED: FUROSEMIDE 40 MG/4 ML VIAL IV ONE ×2 (19:45→20:00)
[2020-06-26 19:55] LABS: Alanine Aminotransferase 42 U/L (16-61); Alkaline Phosphatase 80 U/L (45-117); Anion Gap 3 (5-15); Aspartate Aminotransferase 22 U/L (15-37); BUN/Creatinine Ratio 27.4; Bilirubin, Total 0.6 mg/dL (0.2-1.0); Chloride 98 mmol/L (98-107); GFR African American 133 mL/min; GFR Non-African American 110 mL/min; Potassium 3.4 mmol/L (3.5-5.1); Sodium 136 mmol/L (136-145)
[2020-06-26 19:56] LABS: Total Protein 6.3 g/dL (6.4-8.2)
[2020-06-27] MEDS ORDERED: ACETAMINOPHEN 325 MG TAB PO PRN (00:30)
[2020-06-27] MEDS ORDERED: HYDROcodone-ACET 5/325MG TAB PO PRN (00:30)
[2020-06-27] MEDS ORDERED: DEXTROSE (50%) 50ML SYRG IV PRN (00:30)
[2020-06-27] MEDS ORDERED: WARFARIN SODIUM 7.5 MG PO SCH (00:30)
[2020-06-27] MEDS ORDERED: MORPHINE SULFATE 4 MG/ML SYR/VIAL IV PRN (00:30)
[2020-06-27] MEDS ORDERED: MORPHINE SULF INJ 2 MG/ML SYRINGE 1ML IV PRN ×2 (00:30→13:45)
[2020-06-27] MEDS ORDERED: WARFARIN SODIUM 5 MG TAB PO SCH (00:30)
[2020-06-27] MEDS ORDERED: ONDANSETRON HCL 4 MG/2 ML VIAL IV PRN (00:30)
[2020-06-27] MEDS ORDERED: NITROGLYCERIN 0.4 MG SL TAB SL PRN (00:30)
[2020-06-27] MEDS ORDERED: DOCUSATE SOD 100 MG CAP PO PRN (00:30)
[2020-06-27] MEDS ORDERED: POTASSIUM CHL 20 Meq TABLET PO ONE (03:45)
[2020-06-27 05:05] VITALS: BP 104/66
--- NOTE | 2020-06-27 05:05 | NUR ---
Telemetry admit from ER ALEXANDRIANATALI admitted to Telemetry unit. Patient oriented to MARIA GUADALUPE ARMAS RN primary RN, unit, room, bed, and unit policies regarding patient care and visiting hours. Patient now on continuous telemetry monitoring, tele box # 22 and telemetry reading on arrival to unit is afib at 68 beats per minute. Patient weighed by bedscale and encouraged to call if they need something. All questions and concerns addressed, patient verbalized understanding. Ordered Potassium not administered by ER, will administer late. Patient's personal cane at bedside with patient's label on it. Bed in lowest locked position, side rails up x 2, call light within reach, bed alarm on, COVID [address] Will round every hour and as needed and continue to monitor.
[2020-06-27] MEDS: SODIUM CHLOR 0.9% PF (SALINE LOCK) 10ML VIAL/SYR IV SCH ×3 (06:05→22:26)
[2020-06-27] MEDS: InsuLIN REG 1unit/0.01ml Soln (100units/ml) SC SCH ×3 (07:00→17:00)
[2020-06-27] MEDS: ACCU-CHEK COMFORT CURVE STRIP VI SCH ×4 (07:02→22:27)
--- NOTE | 2020-06-27 07:03 | NUR ---
Closing Note Patient lying in bed, eyes closed, respirations even and unlabored, appears asleep but awakens to name and touch. No s/s of distress. Call light within reach. Will endorse care to dayshift RN.
[2020-06-27 08:00] VITALS: BP 113/60
[2020-06-27 08:55] LABS: Basophils # (auto) 0 10 ^3/uL (0-0.2); Eosinophils # (auto) 0.2 10 ^3/uL (0-0.8); Lymphocytes # (auto) 0.5 10 ^3/uL (0.4-5.4); Neutrophils # (auto) 2.5 10 ^3/uL (1.6-8.6); White Blood Cell 3.8 10^3/uL (4.4-10.8)
[2020-06-27 08:57] LABS: Basophils % (auto) 0.7 % (0.0-2.0); Eosinophils % (auto) 5.2 % (0.0-7.0); Hematocrit 29.3 % (41.0-53.0); Lymphocytes % (auto) 13.2 % (10.0-50.0); Mean Corpuscular Hemoglobin 22.2 pg (28.0-32.0); Mean Corpuscular Hgb Conc. 30.8 g/dL (32.0-36.0); Mean Corpuscular Volume 72.2 fL (80.0-100.0); Monocytes # (auto) 0.5 10 ^3/uL (0-1.3); Monocytes % (auto) 14.4 % (0.0-12.0); Neutrophils % (auto) 66.5 % (37.0-80.0); Platelet Count (auto) 175 10^3/uL (140-450); Red Blood Cells 4.06 10^6/uL (4.5-5.90)
[2020-06-27 08:58] LABS: Red Cell Distribution Width 20.7 % (11.8-14.3)
[2020-06-27 09:19] LABS: Albumin 2.8 g/dL (3.4-5.0); BUN/Creatinine Ratio 26.5; Bilirubin, Total 0.8 mg/dL (0.2-1.0); Calcium 8.6 mg/dL (8.5-10.1); Total Protein 5.9 g/dL (6.4-8.2)
[2020-06-27 09:26] LABS: Potassium 2.9 mmol/L (3.5-5.1)
--- NOTE | 2020-06-27 09:38 | NUR ---
PAGED GED TUTOR HOSPITALIST REGARDING CRITICAL POTASSIUM. AWAITING CALL BACK.
--- NOTE | 2020-06-27 09:45 | NUR ---
ANKITA KOTHARI OF CRITICAL POTASSIUM. AWAITING NEW ORDERS.
--- NOTE | 2020-06-27 09:45 | NUR ---
CALLED AND SPOKE TO ADDISON FOR CARDIOLOGY CONSULT.
--- NOTE | 2020-06-27 09:55 | NUR ---
REGARDING CARDIOLOGY CONSULT: RECALLED CARDIOLOGY CONSULT TO Judith CARDONA PER Judith KOTHARI.
[2020-06-27] MEDS ORDERED: ZINC SULFATE 220mg CAP or TAB PO SCH (10:00)
[2020-06-27] MEDS ORDERED: ASCORBIC ACID 500 MG TAB PO SCH (10:00)
[2020-06-27] MEDS: OMEPRAZOLE 20MG/10ML ORAL SUSP PO SCH (10:00)
[2020-06-27] MEDS: GABAPENTIN 100 MG CAP PO SCH ×2 (10:00→22:00)
[2020-06-27] MEDS: AMIODARONE HCL 200 MG TAB PO SCH ×2 (10:03→22:26)
[2020-06-27] MEDS: POTASSIUM CHLORIDE 8 MEQ TAB PO SCH (10:03)
[2020-06-27] MEDS: MULTIPLE VITAMIN TAB PO SCH (10:04)
[2020-06-27 10:15] LABS: INR 1.72 (0.9-1.15)
[2020-06-27] MEDS ORDERED: POTASSIUM EFFERVESENT TAB 25 MEQ PO ONE (10:15)
--- NOTE | 2020-06-27 10:28 | NUR ---
PER Judith KOTHAIR, PLEASE OBTAIN CLEARANCE FROM PULMONOLOGY AND CARDIOLOGY PRIOR TO DISCHARGE. ALSO STATED OK TO GIVE LASIX WITH POTASSIUM AND OK TO GIVE DIGOXIN. Addendum: 06/27/20 at 1418 by BELIA COLLINS RN RN PER Judith KOTHARI HOLD WARFARIN UNTIL PULMONOLOGY IS IN TO SEE PATIENT FOR POSSIBLE THORACENTESIS.
[2020-06-27] MEDS: FUROSEMIDE 40 MG/4 ML VIAL IV SCH (11:05)
[2020-06-27] MEDS: POTASSIUM CHL 20MEQ/100ML 100 ML IV SCH ×3 (11:16→16:17)
[2020-06-27] MEDS: DIGOXIN 0.25 MG TAB PO SCH (11:16)
[2020-06-27] MEDS ORDERED: LEVO500T21 PO (11:39)
[2020-06-27] MEDS ORDERED: POTA10TA32 PO (11:39)
[2020-06-27] MEDS ORDERED: DOXY-346 PO (11:44)
[2020-06-27 12:00] VITALS: BP 105/54
[2020-06-27] MEDS: DOXYCYCLINE 100 MG TAB/CAP PO SCH ×2 (12:07→22:27)
[2020-06-27 12:28] LABS: Urine Bacteria NONE SEEN /hpf (None Seen); Urine Blood Negative /uL (Negative); Urine Specific Gravity 1.007 (1.001-1.035); Urine WBC 1 /hpf (0 - 3)
--- NOTE | 2020-06-27 13:00 | NUR ---
PATIENT TRANSFERRED TO ROOM 295A VIA WHEELCHAIR BY WEN GRIMM. PATIENT HAS NO S/S OF DISTRESS NOTED. REPORT GIVEN TO MICHELLE ABAD. PATIENT ON TELEMETRY MONITORING. CALLED TELE OFFICE TO INFORM OF PATIENT TRANSFER.
--- NOTE | 2020-06-27 13:20 | NUR ---
NO SIGNS OF DISTRESS. SITTING IN CHAIR AT BEDSIDE EATING HIS LUNCH NO SIGNS OF DISTRESS.
[2020-06-27 13:25] VITALS: BP 116/55
[2020-06-27 16:43] VITALS: BP 119/63
--- NOTE | 2020-06-27 19:20 | NUR ---
Opening Shift Note Assumed care of patient, awake and alert. No S/S of distress/SOB or pain. Safety measures in place, bed in lowest locked position, bed rails raised x2, call light within reach. All needs and questions addressed at this time. Instructed on POC and to call for assist PRN, will continue to monitor for changes Q1hr and PRN.
[2020-06-27 22:00] VITALS: BP 110/61
[2020-06-27] MEDS ORDERED: ATORVASTATIN 20 MG TAB PO SCH (22:00)
[2020-06-27] MEDS ORDERED: InsuLIN REG 1unit/0.01ml Soln (100units/ml) SC SCH (22:00)
[2020-06-28 05:00] VITALS: BP 113/56
[2020-06-28] MEDS: SODIUM CHLOR 0.9% PF (SALINE LOCK) 10ML VIAL/SYR IV SCH ×2 (05:50→15:19)
[2020-06-28] MEDS: ACCU-CHEK COMFORT CURVE STRIP VI SCH ×3 (06:02→17:00)
[2020-06-28] MEDS: InsuLIN REG 1unit/0.01ml Soln (100units/ml) SC SCH ×3 (06:02→17:00)
[2020-06-28 07:21] LABS: Basophils # (auto) 0 10 ^3/uL (0-0.2); Eosinophils # (auto) 0.2 10 ^3/uL (0-0.8); Eosinophils % (auto) 4.9 % (0.0-7.0); Hematocrit 27.7 % (41.0-53.0); Hemoglobin 8.7 g/dL (13.5-17.5); Lymphocytes # (auto) 0.6 10 ^3/uL (0.4-5.4); Lymphocytes % (auto) 11.9 % (10.0-50.0); Mean Corpuscular Hemoglobin 22.8 pg (28.0-32.0); Mean Corpuscular Hgb Conc. 31.5 g/dL (32.0-36.0); Mean Corpuscular Volume 72.4 fL (80.0-100.0); Monocytes # (auto) 0.6 10 ^3/uL (0-1.3); Monocytes % (auto) 13.1 % (0.0-12.0); Neutrophils # (auto) 3.3 10 ^3/uL (1.6-8.6); Neutrophils % (auto) 69.1 % (37.0-80.0); Nucleated Red Blood Cells % 0.1 %; Platelet Count (auto) 191 10^3/uL (140-450); Red Blood Cells 3.83 10^6/uL (4.5-5.90); White Blood Cell 4.8 10^3/uL (4.4-10.8)
[2020-06-28 07:28] LABS: Red Cell Distribution Width 21.5 % (11.8-14.3)
[2020-06-28 07:37] LABS: Potassium 3.4 mmol/L (3.5-5.1)
[2020-06-28 07:55] LABS: Albumin 2.7 g/dL (3.4-5.0); BUN/Creatinine Ratio 23.3; Bilirubin, Total 0.8 mg/dL (0.2-1.0); Calcium 8.7 mg/dL (8.5-10.1); Total Protein 5.7 g/dL (6.4-8.2)
[2020-06-28 09:42] VITALS: BP 125/63
[2020-06-28] MEDS: GABAPENTIN 100 MG CAP PO SCH (10:00)
[2020-06-28] MEDS: OMEPRAZOLE 20MG/10ML ORAL SUSP PO SCH (10:00)
[2020-06-28] MEDS: FUROSEMIDE 40 MG/4 ML VIAL IV SCH (10:18)
[2020-06-28] MEDS: POTASSIUM CHLORIDE 8 MEQ TAB PO SCH (10:19)
[2020-06-28] MEDS: DIGOXIN 0.25 MG TAB PO SCH (10:19)
[2020-06-28] MEDS: MULTIPLE VITAMIN TAB PO SCH (10:19)
[2020-06-28] MEDS: AMIODARONE HCL 200 MG TAB PO SCH (10:19)
[2020-06-28] MEDS: DOXYCYCLINE 100 MG TAB/CAP PO SCH (10:20)
[2020-06-28] MEDS ORDERED: OPTISON 3ml Vial for INJ IV ONE (11:24)
[2020-06-28 12:49] VITALS: BP 127/67
[2020-06-28] MEDS ORDERED: POTASSIUM EFFERVESENT TAB 25 MEQ PO ONE (13:00)
[2020-06-28] MEDS ORDERED: POTASSIUM CHL 20MEQ/100ML 100 ML IV ONE (13:00)
--- NOTE | 2020-06-28 13:40 | NUR ---
PAGED DR CARDONA TO READ ECHO AND GET CARDIO CLEARANCE.
[2020-06-28 14:38] LABS: INR 1.31 (0.9-1.15)
[2020-06-28 16:39] VITALS: BP 123/63
[2020-06-28] MEDS ORDERED: WARFARIN SODIUM 5 MG TAB PO ONE (17:00)
--- NOTE | 2020-06-29 09:26 | NUR ---
Weekend counter sales person-I did not receive a page regarding the social service consult for this patient.
--- NOTE | 2020-06-29 10:31 | NUR ---
I faxed home health order to [facility].
--- NOTE | 2020-06-29 14:25 | NUR ---
I called [facility] and spoke with Any-she said they will be able to accept this patient. I faxed home health order to [facility], requesting authorization for [facility].
== END 2020-06-28 17:00 | disposition home health service (06) | DRG 640 ==
LOC: ER 17:07 → TELE 17:08 → TELE-EAST 06-27 05:05 → TELE-WESTW 06-27 13:40
PROVIDERS: ADMIT Nurse Practitioner Family; ATTEND Nurse Practitioner Family
DX: E87.6 Hypokalemia (principal); I50.23 Acute on chronic systolic (congestive) heart failure; J18.9 Pneumonia, unspecified organism; J98.11 Atelectasis; I48.91 Unspecified atrial fibrillation; K21.9 Gastro-esophageal reflux disease without esophagitis; F32.9 Major depressive disorder, single episode, unspecified; F41.9 Anxiety disorder, unspecified; D63.8 Anemia in other chronic diseases classified elsewhere; I35.9 Nonrheumatic aortic valve disorder, unspecified; J44.9 Chronic obstructive pulmonary disease, unspecified; E11.42 Type 2 diabetes mellitus with diabetic polyneuropathy; E78.5 Hyperlipidemia, unspecified; I11.0 Hypertensive heart disease with heart failure; Z20.828 Contact with and (suspected) exposure to other viral communicable diseases; I25.10 Atherosclerotic heart disease of native coronary artery without angina pectoris; Z79.01 Long term (current) use of anticoagulants; Z79.899 Other long term (current) drug therapy; Z82.49 Family history of ischemic heart disease and other diseases of the circulatory system; Z87.891 Personal history of nicotine dependence; Z95.2 Presence of prosthetic heart valve; Z88.0 Allergy status to penicillin; Z90.49 Acquired absence of other specified parts of digestive tract; T50.1X5A Adverse effect of loop [high-ceiling] diuretics, initial encounter
CPT/HCPCS: 36415; 36600; 71046; 80053; 81001; 82805; 82962; 83036; 83735; 83880; 84443; 84484; 85025; 85610; 85730; 87081; 87086; 87426; 87804; 93005; 93306; G0378; J1815; J3480; Q9956

== ENCOUNTER 2020-09-08 13:08 | Inpatient (IN) | payer OTHER ==
[~2020-09-08] VITALS: Ht 180.3 cm; Wt 88.6 kg
[~2020-09-08 13:08] MED LIST changes: +DOXY-346 PO
[2020-09-08] MEDS ORDERED: SODIUM CHLORIDE 0.9% 250 ML IV ONE ×2 (13:30→17:00)
[2020-09-08 14:31] LABS: Basophils # (auto) 0 10 ^3/uL (0-0.2); Eosinophils # (auto) 0.1 10 ^3/uL (0-0.8); Hemoglobin 8.7 g/dL (13.5-17.5); Mean Corpuscular Hgb Conc. 29.8 g/dL (32.0-36.0); Monocytes # (auto) 0.9 10 ^3/uL (0-1.3)
[2020-09-08 14:32] LABS: Basophils % (auto) 0.3 % (0.0-2.0); Eosinophils % (auto) 1.2 % (0.0-7.0); Hematocrit 29.2 % (41.0-53.0); Lymphocytes # (auto) 0.5 10 ^3/uL (0.4-5.4); Lymphocytes % (auto) 6.9 % (10.0-50.0); Mean Corpuscular Volume 70.3 fL (80.0-100.0); Monocytes % (auto) 11.4 % (0.0-12.0); Neutrophils % (auto) 80.2 % (37.0-80.0); Platelet Count (auto) 295 10^3/uL (140-450); Red Blood Cells 4.16 10^6/uL (4.5-5.90); White Blood Cell 7.5 10^3/uL (4.4-10.8)
[2020-09-08 14:35] LABS: Red Cell Distribution Width 20.8 % (11.8-14.3)
[2020-09-08 14:55] LABS: Albumin 2.3 g/dL (3.4-5.0); Anion Gap 6 (5-15); Blood Urea Nitrogen 12 mg/dL (7-18); Calcium 8.2 mg/dL (8.5-10.1); Carbon Dioxide 27 mmol/L (21-32); Chloride 104 mmol/L (98-107); Glucose 77 mg/dL (74-106); Magnesium 1.7 mg/dL (1.6-2.6); Potassium 3.7 mmol/L (3.5-5.1); Sodium 137 mmol/L (136-145)
[2020-09-08 15:02] LABS: Alanine Aminotransferase 18 U/L (16-61); Alkaline Phosphatase 52 U/L (45-117); Aspartate Aminotransferase 11 U/L (15-37); BUN/Creatinine Ratio 17.6; Bilirubin, Total 0.8 mg/dL (0.2-1.0); GFR African American 145 mL/min; GFR Non-African American 120 mL/min; Total Protein 5.3 g/dL (6.4-8.2)
[2020-09-08] MEDS ORDERED: MORPHINE SULF INJ 2 MG/ML SYRINGE 1ML IV PRN ×2 (17:00→17:15)
[2020-09-08] MEDS ORDERED: NITROGLYCERIN 0.4 MG SL TAB SL PRN (17:00)
[2020-09-08] MEDS ORDERED: ACETAMINOPHEN 325 MG TAB PO PRN (17:15)
[2020-09-08] MEDS ORDERED: DOCU100C8 PO (17:37)
[2020-09-08] MEDS ORDERED: LOPE2CAP PO (17:37)
[2020-09-08] MEDS ORDERED: POLY33504 PO (17:37)
[2020-09-08] MEDS ORDERED: FERR-20 PO (17:37)
[2020-09-08] MEDS ORDERED: POTA10TA32 PO (18:20)
[2020-09-08] MEDS ORDERED: FURO1TAB31 PO (18:20)
[2020-09-08 18:22] LABS: INR 1.89 (0.9-1.15); Partial Thromboplastin Time 33.1 sec (23.0-31.2)
[2020-09-08] MEDS ORDERED: SACU1TAB PO (18:22)
[2020-09-08] MEDS ORDERED: ALBUAER3 IN (18:23)
[2020-09-08] MEDS ORDERED: TIOT1AER IN (18:24)
[2020-09-08] MEDS ORDERED: LORazepam 2MG/ML-1ML VIAL IV PRN (18:45)
[2020-09-08] MEDS ORDERED: WARFARIN SODIUM 5 MG TAB PO ONE (19:15)
[2020-09-08 19:16] LABS: Cholesterol 84 mg/dL (< 200)
[2020-09-08 19:18] LABS: HDL Cholesterol 35 mg/dL (40-59); LDL Cholesterol 40 mg/dL (< 100); Triglycerides 71 mg/dL (< 150)
[2020-09-08] MEDS: ATORVASTATIN 20 MG TAB PO SCH (21:01)
[2020-09-08] MEDS: AMIODARONE HCL 200 MG TAB PO SCH (21:01)
[2020-09-09 06:22] LABS: Basophils # (auto) 0 10 ^3/uL (0-0.2); Eosinophils # (auto) 0.1 10 ^3/uL (0-0.8); Hemoglobin 8.3 g/dL (13.5-17.5); Lymphocytes # (auto) 0.6 10 ^3/uL (0.4-5.4); Monocytes # (auto) 0.8 10 ^3/uL (0-1.3); Nucleated Red Blood Cells % 0.1 %
[2020-09-09 06:24] LABS: Basophils % (auto) 0.4 % (0.0-2.0); Eosinophils % (auto) 2.2 % (0.0-7.0); Hematocrit 27.8 % (41.0-53.0); Lymphocytes % (auto) 9.3 % (10.0-50.0); Monocytes % (auto) 12.3 % (0.0-12.0); Neutrophils # (auto) 4.8 10 ^3/uL (1.6-8.6); Neutrophils % (auto) 75.8 % (37.0-80.0); Platelet Count (auto) 270 10^3/uL (140-450); Red Blood Cells 3.98 10^6/uL (4.5-5.90); Red Cell Distribution Width 20.6 % (11.8-14.3); White Blood Cell 6.3 10^3/uL (4.4-10.8)
[2020-09-09 06:31] LABS: Magnesium 1.7 mg/dL (1.6-2.6); Potassium 3.7 mmol/L (3.5-5.1)
[2020-09-09 06:33] LABS: INR 1.73 (0.9-1.15); Partial Thromboplastin Time 31.6 sec (23.0-31.2)
[2020-09-09 06:34] LABS: BUN/Creatinine Ratio 16.1; Calcium 8.4 mg/dL (8.5-10.1)
[2020-09-09] MEDS: AMIODARONE HCL 200 MG TAB PO SCH ×2 (10:43→21:19)
[2020-09-09] MEDS: CITALOPRAM HYDROBR 20 MG TAB PO SCH (10:43)
[2020-09-09] MEDS: PANTOPRAZOLE 40 MG TAB PO SCH (10:43)
[2020-09-09 16:23] VITALS: BP 105/70
[2020-09-09] MEDS ORDERED: WARFARIN SODIUM 5 MG TAB PO ONE (17:00)
[2020-09-09 17:30] LABS: INR 1.81 (0.9-1.15)
[2020-09-09] MEDS ORDERED: DEXTROSE (50%) 50ML SYRG IV PRN (17:30)
[2020-09-09] MEDS ORDERED: HEPARIN SODIUM (PORCINE) 5000 UNITS/ML 1ML VIAL IV ONE ×2 (18:00→18:15)
[2020-09-09] MEDS ORDERED: HEPARIN DRIP/D5W 100UNITS/ML 250 ML IV SCH (18:00)
[2020-09-09 18:37] LABS: Basophils # (auto) 0 10 ^3/uL (0-0.2); Basophils % (auto) 0.3 % (0.0-2.0); Eosinophils # (auto) 0.1 10 ^3/uL (0-0.8); Lymphocytes # (auto) 0.6 10 ^3/uL (0.4-5.4)
[2020-09-09 18:39] LABS: Eosinophils % (auto) 1.3 % (0.0-7.0); Hematocrit 32.4 % (41.0-53.0); Hemoglobin 9.8 g/dL (13.5-17.5); Lymphocytes % (auto) 6.8 % (10.0-50.0); Mean Corpuscular Hemoglobin 21.3 pg (28.0-32.0); Mean Corpuscular Hgb Conc. 30.2 g/dL (32.0-36.0); Mean Corpuscular Volume 70.6 fL (80.0-100.0); Monocytes % (auto) 11.8 % (0.0-12.0); Neutrophils % (auto) 79.8 % (37.0-80.0); Nucleated Red Blood Cells % 0.1 %; Platelet Count (auto) 367 10^3/uL (140-450); White Blood Cell 8.8 10^3/uL (4.4-10.8)
[2020-09-09 18:42] LABS: Red Cell Distribution Width 20.6 % (11.8-14.3)
[2020-09-09] MEDS: HEPARIN DRIP/D5W 100UNITS/ML 250 ML IV SCH (18:54)
[2020-09-09] MEDS: ATORVASTATIN 20 MG TAB PO SCH (21:19)
[2020-09-09] MEDS: InsuLIN REG 1unit/0.01ml Soln (100units/ml) SC SCH (22:00)
[2020-09-09] MEDS: ACCU-CHEK COMFORT CURVE STRIP VI SCH (22:03)
[2020-09-09 22:08] VITALS: BP 103/69
[2020-09-10 01:17] LABS: INR 1.81 (0.9-1.15); Partial Thromboplastin Time 46.5 sec (23.0-31.2)
[2020-09-10] MEDS: HEPARIN DRIP/D5W 100UNITS/ML 250 ML IV SCH ×2 (01:35→18:11)
[2020-09-10 04:57] LABS: Basophils # (auto) 0 10 ^3/uL (0-0.2); Eosinophils # (auto) 0.1 10 ^3/uL (0-0.8); Hemoglobin 8.6 g/dL (13.5-17.5); Lymphocytes # (auto) 0.6 10 ^3/uL (0.4-5.4); Monocytes # (auto) 0.8 10 ^3/uL (0-1.3); White Blood Cell 6.7 10^3/uL (4.4-10.8)
[2020-09-10 05:00] LABS: Basophils % (auto) 0.2 % (0.0-2.0); Eosinophils % (auto) 1.6 % (0.0-7.0); Hematocrit 28.4 % (41.0-53.0); Lymphocytes % (auto) 8.5 % (10.0-50.0); Mean Corpuscular Hemoglobin 21.3 pg (28.0-32.0); Mean Corpuscular Hgb Conc. 30.3 g/dL (32.0-36.0); Mean Corpuscular Volume 70.4 fL (80.0-100.0); Monocytes % (auto) 11.8 % (0.0-12.0); Neutrophils # (auto) 5.2 10 ^3/uL (1.6-8.6); Neutrophils % (auto) 77.9 % (37.0-80.0); Platelet Count (auto) 289 10^3/uL (140-450); Red Blood Cells 4.04 10^6/uL (4.5-5.90)
[2020-09-10 05:16] LABS: INR 1.77 (0.9-1.15)
[2020-09-10 05:17] LABS: Calcium 8.3 mg/dL (8.5-10.1); Magnesium 1.8 mg/dL (1.6-2.6); Potassium 3.7 mmol/L (3.5-5.1)
[2020-09-10 05:20] LABS: BUN/Creatinine Ratio 23.4; Red Cell Distribution Width 20.7 % (11.8-14.3)
[2020-09-10 05:30] VITALS: BP 114/68
[2020-09-10] MEDS: InsuLIN REG 1unit/0.01ml Soln (100units/ml) SC SCH ×4 (06:04→22:14)
[2020-09-10] MEDS: ACCU-CHEK COMFORT CURVE STRIP VI SCH ×4 (06:05→22:14)
[2020-09-10] MEDS: ONDANSETRON HCL 4 MG/2 ML VIAL IV PRN (08:57)
[2020-09-10] MEDS: CITALOPRAM HYDROBR 20 MG TAB PO SCH (08:57)
[2020-09-10] MEDS: AMIODARONE HCL 200 MG TAB PO SCH ×2 (08:57→22:03)
[2020-09-10] MEDS: PANTOPRAZOLE 40 MG TAB PO SCH (08:57)
[2020-09-10 09:00] VITALS: BP 106/66
[2020-09-10 11:11] LABS: INR 1.74 (0.9-1.15); Partial Thromboplastin Time 46.9 sec (23.0-31.2)
[2020-09-10] MEDS ORDERED: HEPARIN DRIP/D5W 100UNITS/ML 250 ML IV SCH (12:00)
[2020-09-10 13:00] VITALS: BP 129/83
[2020-09-10 17:00] VITALS: BP 120/69
[2020-09-10 18:41] LABS: INR 1.65 (0.9-1.15); Partial Thromboplastin Time 29.6 sec (23.0-31.2)
[2020-09-10] MEDS: ATORVASTATIN 20 MG TAB PO SCH (22:04)
[2020-09-11] VITALS: BP 108/71
[2020-09-11 00:34] LABS: INR 1.73 (0.9-1.15); Partial Thromboplastin Time 56.1 sec (23.0-31.2)
[2020-09-11 05:55] LABS: Basophils # (auto) 0 10 ^3/uL (0-0.2); Eosinophils # (auto) 0.1 10 ^3/uL (0-0.8); Hemoglobin 8.5 g/dL (13.5-17.5); Mean Corpuscular Hemoglobin 21.2 pg (28.0-32.0); White Blood Cell 9.4 10^3/uL (4.4-10.8)
[2020-09-11 05:57] LABS: Basophils % (auto) 0.4 % (0.0-2.0); Eosinophils % (auto) 0.9 % (0.0-7.0); Hematocrit 28.2 % (41.0-53.0); Lymphocytes # (auto) 0.5 10 ^3/uL (0.4-5.4); Lymphocytes % (auto) 5.7 % (10.0-50.0); Mean Corpuscular Volume 70.7 fL (80.0-100.0); Monocytes % (auto) 10.9 % (0.0-12.0); Neutrophils # (auto) 7.7 10 ^3/uL (1.6-8.6); Neutrophils % (auto) 82.1 % (37.0-80.0); Platelet Count (auto) 285 10^3/uL (140-450); Red Blood Cells 3.99 10^6/uL (4.5-5.90); Red Cell Distribution Width 20.7 % (11.8-14.3)
[2020-09-11 06:03] LABS: Potassium 3.6 mmol/L (3.5-5.1)
[2020-09-11 06:10] LABS: BUN/Creatinine Ratio 21.5; Calcium 8.5 mg/dL (8.5-10.1); Magnesium 1.9 mg/dL (1.6-2.6)
[2020-09-11] MEDS: InsuLIN REG 1unit/0.01ml Soln (100units/ml) SC SCH ×4 (06:10→22:12)
[2020-09-11] MEDS: ACCU-CHEK COMFORT CURVE STRIP VI SCH ×4 (06:11→22:12)
[2020-09-11 06:31] LABS: INR 1.72 (0.9-1.15); Partial Thromboplastin Time 66.9 sec (23.0-31.2)
[2020-09-11 08:00] VITALS: BP 106/73
[2020-09-11 09:00] VITALS: BP 106/73
[2020-09-11] MEDS: ONDANSETRON HCL 4 MG/2 ML VIAL IV PRN (09:40)
[2020-09-11] MEDS: CITALOPRAM HYDROBR 20 MG TAB PO SCH (09:40)
[2020-09-11] MEDS: AMIODARONE HCL 200 MG TAB PO SCH ×2 (09:41→22:21)
[2020-09-11] MEDS: PANTOPRAZOLE 40 MG TAB PO SCH ×2 (09:41→22:21)
[2020-09-11] MEDS: HEPARIN DRIP/D5W 100UNITS/ML 250 ML IV SCH (09:59)
[2020-09-11] MEDS: SUCRALFATE 1 GM/10 ML ORAL SUSP PO SCH ×3 (11:15→22:24)
[2020-09-11 12:03] LABS: INR 1.67 (0.9-1.15)
[2020-09-11 12:47] LABS: Partial Thromboplastin Time 72.7 sec (23.0-31.2)
[2020-09-11 16:00] VITALS: BP 116/67
[2020-09-11] MEDS ORDERED: WARFARIN SODIUM 5 MG TAB PO ONE (17:00)
[2020-09-11 18:46] LABS: INR 1.59 (0.9-1.15); Partial Thromboplastin Time 69.2 sec (23.0-31.2)
[2020-09-11] MEDS: ATORVASTATIN 20 MG TAB PO SCH (22:21)
[2020-09-12] VITALS: BP 106/62
[2020-09-12] MEDS: HEPARIN DRIP/D5W 100UNITS/ML 250 ML IV SCH (04:44)
[2020-09-12 05:00] VITALS: BP 121/73
[2020-09-12] MEDS: InsuLIN REG 1unit/0.01ml Soln (100units/ml) SC SCH ×2 (06:00→11:30)
[2020-09-12] MEDS: ACCU-CHEK COMFORT CURVE STRIP VI SCH ×2 (06:00→12:13)
[2020-09-12] MEDS: SUCRALFATE 1 GM/10 ML ORAL SUSP PO SCH ×2 (06:33→12:13)
[2020-09-12 07:22] LABS: Basophils # (auto) 0 10 ^3/uL (0-0.2); Basophils % (auto) 0.2 % (0.0-2.0); Eosinophils # (auto) 0.1 10 ^3/uL (0-0.8); Hemoglobin 8.4 g/dL (13.5-17.5); Lymphocytes # (auto) 0.6 10 ^3/uL (0.4-5.4); Mean Corpuscular Hemoglobin 21.3 pg (28.0-32.0); Mean Corpuscular Volume 70.4 fL (80.0-100.0); Monocytes # (auto) 0.9 10 ^3/uL (0-1.3)
[2020-09-12 07:24] LABS: Eosinophils % (auto) 1.5 % (0.0-7.0); Hematocrit 27.8 % (41.0-53.0); Lymphocytes % (auto) 7.1 % (10.0-50.0); Mean Corpuscular Hgb Conc. 30.2 g/dL (32.0-36.0); Monocytes % (auto) 11.9 % (0.0-12.0); Neutrophils # (auto) 6.2 10 ^3/uL (1.6-8.6); Neutrophils % (auto) 79.3 % (37.0-80.0); Platelet Count (auto) 289 10^3/uL (140-450); Red Blood Cells 3.95 10^6/uL (4.5-5.90); White Blood Cell 7.8 10^3/uL (4.4-10.8)
[2020-09-12 07:34] LABS: INR 1.41 (0.9-1.15); Partial Thromboplastin Time 33.3 sec (23.0-31.2)
[2020-09-12 07:37] LABS: Red Cell Distribution Width 20.5 % (11.8-14.3)
[2020-09-12 07:41] LABS: Potassium 3.5 mmol/L (3.5-5.1)
[2020-09-12 07:45] LABS: BUN/Creatinine Ratio 23.7; Calcium 8.6 mg/dL (8.5-10.1)
[2020-09-12 08:00] VITALS: BP 106/60
[2020-09-12] MEDS ORDERED: DOXYCYCLINE 100MG/250ML 250 ML IV SCH (09:30)
[2020-09-12] MEDS: PANTOPRAZOLE 40 MG TAB PO SCH (09:57)
[2020-09-12] MEDS: AMIODARONE HCL 200 MG TAB PO SCH (09:57)
[2020-09-12] MEDS: CITALOPRAM HYDROBR 20 MG TAB PO SCH (09:57)
[2020-09-12] MEDS ORDERED: FLUMAZENIL 0.1 MG/ML INJ 10ML MDV IV ONE (10:03)
[2020-09-12] MEDS ORDERED: NALOXONE HCL 0.4 MG/ML VIAL ONE (10:03)
[2020-09-12] MEDS ORDERED: LIDOCAINE VISCOUS 2% 15ML UD ONE (10:03)
[2020-09-12] MEDS ORDERED: diphenhdrAMINE HCL 50 MG/1 ML VL ONE (10:04)
[2020-09-12] MEDS ORDERED: MIDAZOLAM HCL 5 MG/ML-1ML VIAL ONE (10:04)
[2020-09-12] MEDS ORDERED: fentaNYL CITRATE 100 MCG/2 ML VL ONE (10:04)
[2020-09-12 16:17] VITALS: BP 110/64
== END 2020-09-12 17:50 | disposition home or self-care (01) | DRG 186 ==
LOC: EDBD 13:08 → ER 13:08 → TELE 13:09 → TELE-CENTR 09-09 09:22
PROVIDERS: ADMIT Internal Medicine; ATTEND Internal Medicine
PROC: 0W9B3ZZ Drainage of Left Pleural Cavity, Percutaneous Approach (ICD-10-PCS; principal; 2020-09-10)
PROC: 0DB68ZX Excision of Stomach, Via Natural or Artificial Opening Endoscopic, Diagnostic (ICD-10-PCS; 2020-09-12)
DX: J90 Pleural effusion, not elsewhere classified (principal); E43 Unspecified severe protein-calorie malnutrition; I48.20 Chronic atrial fibrillation, unspecified; E34.0 Carcinoid syndrome; E11.9 Type 2 diabetes mellitus without complications; K31.7 Polyp of stomach and duodenum; K29.70 Gastritis, unspecified, without bleeding; D64.9 Anemia, unspecified; I10 Essential (primary) hypertension; E78.5 Hyperlipidemia, unspecified; I48.0 Paroxysmal atrial fibrillation; R19.7 Diarrhea, unspecified; Z20.822 Contact with and (suspected) exposure to COVID-19; Z79.899 Other long term (current) drug therapy; Z79.01 Long term (current) use of anticoagulants; Z87.891 Personal history of nicotine dependence; Z82.3 Family history of stroke; Z82.49 Family history of ischemic heart disease and other diseases of the circulatory system; Z86.73 Personal history of transient ischemic attack (TIA), and cerebral infarction without residual deficits; Z95.2 Presence of prosthetic heart valve; Z88.0 Allergy status to penicillin; Z90.49 Acquired absence of other specified parts of digestive tract
CPT/HCPCS: 10022; 36415; 43239; 70551; 71045; 76604; 76942; 80048; 80053; 80061; 80162; 82962; 83735; 84484; 85025; 85610; 85730; 87045; 87426; 87427; 93886; 96360; 96361; 99291; G0378; J1815; J2250; J2405; J3490

== ENCOUNTER 2020-09-26 13:50 | Inpatient (IN) | payer OTHER ==
[~2020-09-26] VITALS: Ht 180.3 cm; Wt 89.2 kg
[~2020-09-26 13:50] MED LIST changes: +ALBUAER3 IN; -CITA10TA70 PO; +DOCU100C10 PO; -DOXY-346 PO; +FERR-20 PO; -GABA100C9 PO; +LOPE2CAP PO; -OMEP-260 PO; +POLY33504 PO; +SACU1TAB PO; +TIOT1AER IN
[2020-09-26 16:59] LABS: Basophils # (auto) 0 10 ^3/uL (0-0.2); Eosinophils # (auto) 0 10 ^3/uL (0-0.8); Lymphocytes # (auto) 0.4 10 ^3/uL (0.4-5.4); Monocytes # (auto) 0.3 10 ^3/uL (0-1.3); White Blood Cell 5.7 10^3/uL (4.4-10.8)
[2020-09-26 17:01] LABS: Basophils % (auto) 0.2 % (0.0-2.0); Eosinophils % (auto) 0.1 % (0.0-7.0); Hematocrit 27.6 % (41.0-53.0); Hemoglobin 8.1 g/dL (13.5-17.5); Lymphocytes % (auto) 7.2 % (10.0-50.0); Mean Corpuscular Hemoglobin 20.6 pg (28.0-32.0); Mean Corpuscular Hgb Conc. 29.5 g/dL (32.0-36.0); Mean Corpuscular Volume 69.8 fL (80.0-100.0); Monocytes % (auto) 5.4 % (0.0-12.0); Neutrophils % (auto) 87.1 % (37.0-80.0); Nucleated Red Blood Cells % 0.1 %; Red Blood Cells 3.95 10^6/uL (4.5-5.90)
[2020-09-26 17:08] LABS: Red Cell Distribution Width 20.1 % (11.8-14.3)
[2020-09-26 17:11] LABS: Albumin 2.4 g/dL (3.4-5.0); Calcium 8.2 mg/dL (8.5-10.1); Magnesium 2.5 mg/dL (1.6-2.6); Potassium 3.5 mmol/L (3.5-5.1)
[2020-09-26 17:18] LABS: Bilirubin, Total 0.9 mg/dL (0.2-1.0); Total Protein 6.2 g/dL (6.4-8.2)
[2020-09-26] MEDS ORDERED: ALBUTEROL SULF HFA 90MCG INH 200DOSE IN PRN (20:15)
[2020-09-26] MEDS ORDERED: ONDANSETRON HCL 4 MG/2 ML VIAL IV PRN (20:15)
[2020-09-26] MEDS ORDERED: REMDESIVIR PER PHARMACY 0 ML IV SCH (20:15)
[2020-09-26] MEDS ORDERED: ACETAMINOPHEN 500 MG TAB PO PRN (20:15)
[2020-09-26] MEDS ORDERED: HYDROcodone-ACET 5/325MG TAB PO PRN (20:15)
[2020-09-26] MEDS ORDERED: MORPHINE SULFATE INJECTION 2 MG/ML SYRG IV PRN ×2 (20:15)
[2020-09-26] MEDS ORDERED: NITROGLYCERIN 0.4 MG SL TAB SL PRN (20:15)
[2020-09-26] MEDS: AZITHROMYCIN 500MG/ 250ML 250 ML IV SCH (21:00)
[2020-09-26] MEDS: DexAMETHasone SOD PHOS 10MG/1ML VIAL INJ IV SCH (21:38)
[2020-09-26] MEDS: cefTRIAXone 1GM/50ML D5W 50 ML IV SCH (21:38)
[2020-09-26] MEDS: BUDESONIDE (INHALATION) 180 MCG IH IN SCH (22:10)
[2020-09-26] MEDS ORDERED: CITA10TA70 PO (23:26)
[2020-09-26] MEDS ORDERED: PANT40TA2 PO (23:26)
[2020-09-26] MEDS ORDERED: WARF5TAB71 PO (23:26)
[2020-09-26] MEDS ORDERED: MAGN400C3 PO (23:31)
[2020-09-26] MEDS ORDERED: POTA-220 PO (23:31)
[2020-09-26] MEDS ORDERED: PYRI1TAB3 PO (23:31)
[2020-09-26] MEDS ORDERED: FERR-20 PO (23:31)
[2020-09-26] MEDS ORDERED: SACU1TAB PO (23:33)
[2020-09-26] MEDS ORDERED: TIOT1AER IN (23:35)
[2020-09-27] VITALS: BP 139/77
[2020-09-27] MEDS: ATORVASTATIN 20 MG TAB PO SCH ×2 (00:36→20:53)
[2020-09-27 02:33] LABS: CRP High Sensitivity 15.9 mg/dL (< 0.3)
[2020-09-27] MEDS: SACUBITRIL-VALSARTAN 24mg/26mg TAB PO SCH (06:05)
[2020-09-27 06:07] LABS: Basophils # (auto) 0 10 ^3/uL (0-0.2); Basophils % (auto) 0.1 % (0.0-2.0); Eosinophils # (auto) 0 10 ^3/uL (0-0.8); Lymphocytes # (auto) 0.2 10 ^3/uL (0.4-5.4); Monocytes # (auto) 0.1 10 ^3/uL (0-1.3); Neutrophils # (auto) 4.7 10 ^3/uL (1.6-8.6); Nucleated Red Blood Cells % 0.1 %
[2020-09-27 06:10] LABS: Hematocrit 25.2 % (41.0-53.0); Hemoglobin 7.7 g/dL (13.5-17.5); Lymphocytes % (auto) 3.6 % (10.0-50.0); Mean Corpuscular Hemoglobin 21.1 pg (28.0-32.0); Mean Corpuscular Hgb Conc. 30.4 g/dL (32.0-36.0); Mean Corpuscular Volume 69.5 fL (80.0-100.0); Monocytes % (auto) 2.5 % (0.0-12.0); Neutrophils % (auto) 93.8 % (37.0-80.0); Red Blood Cells 3.63 10^6/uL (4.5-5.90); Red Cell Distribution Width 19.9 % (11.8-14.3)
[2020-09-27 06:20] LABS: BUN/Creatinine Ratio 52.9; Calcium 8.4 mg/dL (8.5-10.1); Potassium 3.5 mmol/L (3.5-5.1)
[2020-09-27 08:00] VITALS: BP 110/55
[2020-09-27] MEDS: ZINC SULFATE 220mg CAP or TAB PO SCH (08:44)
[2020-09-27] MEDS: FUROSEMIDE 40 MG TAB PO SCH (08:45)
[2020-09-27] MEDS: AMIODARONE HCL 200 MG TAB PO SCH (08:45)
[2020-09-27] MEDS: FAMOTIDINE 20 MG TAB PO SCH (08:45)
[2020-09-27] MEDS: ASCORBIC ACID 1,000 MG TAB PO SCH (08:46)
[2020-09-27] MEDS: ENOXAPARIN SOD 40 MG/0.4 ML SYRINGE SC SCH (08:46)
[2020-09-27] MEDS: BUDESONIDE (INHALATION) 180 MCG IH IN SCH ×2 (09:34→22:01)
[2020-09-27] MEDS ORDERED: IVERMECTIN 3 MG TAB PO ONE (10:00)
[2020-09-27] MEDS: FERROUS SULFATE 325mg EC TAB PO SCH (12:07)
[2020-09-27] MEDS ORDERED: REMDESIVIR 200 MG in NS 210ml LOADING DOSE ADULT IV ONE (15:00)
[2020-09-27] MEDS ORDERED: DEXTROSE (50%) 50ML SYRG IV PRN (15:30)
[2020-09-27 16:00] VITALS: BP 130/56
[2020-09-27] MEDS: InsuLIN REG 1unit/0.01ml Soln (100units/ml) SC SCH ×2 (17:00→20:50)
[2020-09-27] MEDS: ACCU-CHEK COMFORT CURVE STRIP VI SCH ×2 (17:46→20:52)
[2020-09-27] MEDS: DexAMETHasone SOD PHOS 10MG/1ML VIAL INJ IV SCH (20:54)
[2020-09-27] MEDS: cefTRIAXone 1GM/50ML D5W 50 ML IV SCH (20:54)
[2020-09-27] MEDS: AZITHROMYCIN 500MG/ 250ML 250 ML IV SCH (22:44)
[2020-09-27] MEDS ORDERED: IOHEXOL 350 MG/ML 100ML IJ ONE (23:27)
[2020-09-28] VITALS: BP 142/71
[2020-09-28] MEDS ORDERED: FUROSEMIDE 40 MG/4 ML VIAL IV ONE (02:30)
[2020-09-28] MEDS: SACUBITRIL-VALSARTAN 24mg/26mg TAB PO SCH (05:18)
[2020-09-28] MEDS: ACCU-CHEK COMFORT CURVE STRIP VI SCH ×3 (05:18→18:50)
[2020-09-28] MEDS: InsuLIN REG 1unit/0.01ml Soln (100units/ml) SC SCH ×3 (05:18→18:52)
[2020-09-28] MEDS: ALBUTEROL SULF HFA 90MCG INH 200DOSE IN SCH ×2 (06:00→19:22)
[2020-09-28 06:34] LABS: Potassium 3.7 mmol/L (3.5-5.1)
[2020-09-28 06:45] LABS: Basophils # (auto) 0 10 ^3/uL (0-0.2); Eosinophils # (auto) 0 10 ^3/uL (0-0.8); Lymphocytes # (auto) 0.2 10 ^3/uL (0.4-5.4); Monocytes # (auto) 0.2 10 ^3/uL (0-1.3); Neutrophils # (auto) 5.5 10 ^3/uL (1.6-8.6); White Blood Cell 5.9 10^3/uL (4.4-10.8)
[2020-09-28 06:46] LABS: Basophils % (auto) 0.3 % (0.0-2.0); Hematocrit 26.7 % (41.0-53.0); Hemoglobin 8.1 g/dL (13.5-17.5); Lymphocytes % (auto) 2.6 % (10.0-50.0); Mean Corpuscular Hemoglobin 21.1 pg (28.0-32.0); Mean Corpuscular Hgb Conc. 30.4 g/dL (32.0-36.0); Mean Corpuscular Volume 69.5 fL (80.0-100.0); Neutrophils % (auto) 94.1 % (37.0-80.0); Nucleated Red Blood Cells % 0.2 %; Red Blood Cells 3.85 10^6/uL (4.5-5.90); Red Cell Distribution Width 20.2 % (11.8-14.3)
[2020-09-28 06:50] LABS: BUN/Creatinine Ratio 48.1; Bilirubin, Total 0.6 mg/dL (0.2-1.0); Calcium 8.2 mg/dL (8.5-10.1); Magnesium 2.4 mg/dL (1.6-2.6); Total Protein 5.6 g/dL (6.4-8.2)
[2020-09-28 08:00] VITALS: BP 115/63
[2020-09-28 09:34] LABS: INR 3.18 (0.9-1.15)
[2020-09-28] MEDS: ZINC SULFATE 220mg CAP or TAB PO SCH (09:37)
[2020-09-28] MEDS: FAMOTIDINE 20 MG TAB PO SCH (09:38)
[2020-09-28] MEDS: ASCORBIC ACID 1,000 MG TAB PO SCH (09:38)
[2020-09-28] MEDS: AMIODARONE HCL 200 MG TAB PO SCH (09:38)
[2020-09-28] MEDS: FUROSEMIDE 40 MG TAB PO SCH (09:38)
[2020-09-28] MEDS: ENOXAPARIN SOD 40 MG/0.4 ML SYRINGE SC SCH (09:39)
[2020-09-28] MEDS ORDERED: CITALOPRAM HYDROBR 20 MG TAB PO SCH (10:00)
[2020-09-28] MEDS ORDERED: PANTOPRAZOLE 40 MG TAB PO SCH (10:00)
[2020-09-28] MEDS: BUDESONIDE (INHALATION) 180 MCG IH IN SCH ×2 (10:00→19:22)
[2020-09-28] MEDS: FERROUS SULFATE 325mg EC TAB PO SCH (11:58)
[2020-09-28] MEDS ORDERED: REMDESIVIR 100mg 100 MG in SODIUM CHL 0.9% 230 ML IV SCH (15:00)
[2020-09-28 15:51] VITALS: BP 106/61
[2020-09-28] MEDS ORDERED: DEXA6TAB6 PO (18:15)
[2020-09-28] MEDS ORDERED: LEVO500T31 PO (18:15)
[2020-09-28] MEDS ORDERED: ALBUAER3 IN (18:15)
[2020-09-28] MEDS ORDERED: IPRIH IN (18:15)
[2020-09-28 20:34] VITALS: BP 115/62
[2020-09-28 20:57] VITALS: BP 115/62
[2020-09-28] MEDS ORDERED: ATORVASTATIN 20 MG TAB PO SCH (22:00)
== END 2020-09-28 21:52 | disposition home health service (06) | DRG 177 ==
LOC: EDBD 13:50 → ER 13:50 → TELE 13:51 → TELE-EAST 22:00 → UNDODISIN 09-28 21:52
PROVIDERS: ADMIT Nurse Practitioner Acute Care; ATTEND Internal Medicine
PROC: XW033E5 Introduction of Remdesivir Anti-infective into Peripheral Vein, Percutaneous Approach, New Technology Group 5 (ICD-10-PCS; principal; 2020-09-26)
DX: U07.1 COVID-19 (principal); I50.23 Acute on chronic systolic (congestive) heart failure; J12.82 Pneumonia due to coronavirus disease 2019; J96.01 Acute respiratory failure with hypoxia; E44.0 Moderate protein-calorie malnutrition; J44.0 Chronic obstructive pulmonary disease with (acute) lower respiratory infection; I42.9 Cardiomyopathy, unspecified; J98.11 Atelectasis; D68.59 Other primary thrombophilia; R04.2 Hemoptysis; E11.9 Type 2 diabetes mellitus without complications; E78.5 Hyperlipidemia, unspecified; F32.9 Major depressive disorder, single episode, unspecified; D50.9 Iron deficiency anemia, unspecified; F41.9 Anxiety disorder, unspecified; I11.0 Hypertensive heart disease with heart failure; I25.10 Atherosclerotic heart disease of native coronary artery without angina pectoris; I48.0 Paroxysmal atrial fibrillation; K21.9 Gastro-esophageal reflux disease without esophagitis; Z79.84 Long term (current) use of oral hypoglycemic drugs; Z79.899 Other long term (current) drug therapy; Z82.49 Family history of ischemic heart disease and other diseases of the circulatory system; Z95.2 Presence of prosthetic heart valve; Z88.0 Allergy status to penicillin; Z90.49 Acquired absence of other specified parts of digestive tract; Z68.27 Body mass index [BMI] 27.0-27.9, adult
CPT/HCPCS: 36415; 71045; 71275; 80048; 80053; 82728; 82962; 83036; 83615; 83735; 84443; 84484; 85025; 85379; 85610; 86141; 87040; 87070; 87081; 87205; 87426; 87804; 93005; 93970; 94640; 96365; G0378; J0696; J1100; J1815

== ENCOUNTER 2022-09-20 12:25 | Inpatient (IN) | payer OTHER ==
[~2022-09-20] VITALS: Ht 180.3 cm; Wt 81.0 kg
[~2022-09-20 12:25] MED LIST changes: +CITA10TA70 PO; +DEXA6TAB6 PO; -DOCU100C10 PO; +IPRIH IN; +LEVO500T31 PO; -LOPE2CAP PO; +MAGN400C3 PO; +PANT40TA2 PO; -POLY33504 PO; +POTA-220 PO; -POTA10TA32 PO; +PYRI1TAB3 PO; -WARF7.5T20 PO
[2022-09-20] MEDS ORDERED: dilTIAZem 125mg/125ml BAG KIT 125 ML IV ONE (12:45)
[2022-09-20] MEDS ORDERED: dilTIAZem 25 MG/5 ML VIAL IV ONE (12:45)
[2022-09-20 13:28] LABS: Basophils # (auto) 0 10 ^3/uL (0-0.2); Basophils % (auto) 0.4 % (0.0-2.0); Hemoglobin 11.6 g/dL (13.5-17.5); Lymphocytes # (auto) 0.6 10 ^3/uL (0.4-5.4); Monocytes # (auto) 0.5 10 ^3/uL (0-1.3); White Blood Cell 5.4 10^3/uL (4.4-10.8)
[2022-09-20 13:30] LABS: Eosinophils # (auto) 0.2 10 ^3/uL (0-0.8); Eosinophils % (auto) 2.8 % (0.0-7.0); Lymphocytes % (auto) 10.7 % (10.0-50.0); Mean Corpuscular Hemoglobin 25.4 pg (28.0-32.0); Mean Corpuscular Hgb Conc. 30.1 g/dL (32.0-36.0); Mean Corpuscular Volume 84.4 fL (80.0-100.0); Monocytes % (auto) 8.9 % (0.0-12.0); Neutrophils # (auto) 4.2 10 ^3/uL (1.6-8.6); Neutrophils % (auto) 77.2 % (37.0-80.0); Red Blood Cells 4.56 10^6/uL (4.5-5.90); Red Cell Distribution Width 18.6 % (11.8-14.3)
[2022-09-20 13:53] LABS: Calcium 9.8 mg/dL (8.5-10.1); Potassium 4.5 mmol/L (3.5-5.1)
[2022-09-20 13:56] LABS: Albumin 3.1 g/dL (3.4-5.0); BUN/Creatinine Ratio 22.7
[2022-09-20 13:59] LABS: Bilirubin, Total 1.2 mg/dL (0.2-1.0); Total Protein 6.3 g/dL (6.4-8.2)
[2022-09-20 14:21] LABS: Hematocrit 34.8 % (41.0-53.0)
[2022-09-20 14:48] LABS: INR 2.2 (0.9-1.15); Partial Thromboplastin Time 32.5 sec (24.6-33.4)
[2022-09-20 16:21] LABS: Urine Bacteria NONE SEEN /hpf (None Seen); Urine Blood Negative /uL (Negative); Urine Hyaline Cast FEW /lpf (0 - 2); Urine Mucus FEW (None Seen); Urine Specific Gravity 1.028 (1.001-1.035); Urine WBC 41 /hpf (0 - 3)
[2022-09-20] MEDS ORDERED: DEXTROSE (50%) 50ML SYRG IV PRN (18:30)
[2022-09-20] MEDS ORDERED: MORPHINE SULFATE INJ 2 MG/ml SYRG IV PRN (18:30)
[2022-09-20] MEDS ORDERED: ONDANSETRON HCL 4 MG/2 ML VIAL IV PRN (18:30)
[2022-09-20] MEDS ORDERED: NITROGLYCERIN 0.4 MG SL TAB SL PRN (18:30)
[2022-09-20] MEDS ORDERED: ACETAMINOPHEN 325 MG TAB PO PRN (18:30)
[2022-09-20] MEDS: AMIODARONE HCL 200 MG TAB PO SCH (19:01)
[2022-09-20] MEDS ORDERED: WARFARIN SODIUM 5 MG TAB PO ONE (20:30)
[2022-09-20] MEDS: ATORVASTATIN 20 MG TAB PO SCH (22:28)
[2022-09-20] MEDS: InsuLIN REG 1unit/0.01ml Soln (100units/ml) SC SCH (22:28)
[2022-09-20] MEDS: METOPROLOL TARTRATE 25 MG TAB PO SCH (22:29)
[2022-09-20] MEDS: ACCU-CHEK COMFORT CURVE STRIP VI SCH (22:31)
[2022-09-21 06:36] LABS: Basophils # (auto) 0 10 ^3/uL (0-0.2); Eosinophils # (auto) 0.2 10 ^3/uL (0-0.8); Hemoglobin 11.7 g/dL (13.5-17.5); Lymphocytes # (auto) 0.7 10 ^3/uL (0.4-5.4); Monocytes # (auto) 0.6 10 ^3/uL (0-1.3); Monocytes % (auto) 9.1 % (0.0-12.0)
[2022-09-21 06:38] LABS: Basophils % (auto) 0.3 % (0.0-2.0); Eosinophils % (auto) 2.6 % (0.0-7.0); Lymphocytes % (auto) 11.3 % (10.0-50.0); Mean Corpuscular Hgb Conc. 30.8 g/dL (32.0-36.0); Mean Corpuscular Volume 84.3 fL (80.0-100.0); Neutrophils % (auto) 76.7 % (37.0-80.0); Red Cell Distribution Width 18.6 % (11.8-14.3); White Blood Cell 6.6 10^3/uL (4.4-10.8)
[2022-09-21 06:50] LABS: INR 2.04 (0.9-1.15); Partial Thromboplastin Time 33.1 sec (24.6-33.4)
[2022-09-21] MEDS: ACCU-CHEK COMFORT CURVE STRIP VI SCH ×4 (06:53→22:25)
[2022-09-21] MEDS: InsuLIN REG 1unit/0.01ml Soln (100units/ml) SC SCH ×4 (06:53→22:00)
[2022-09-21 08:52] LABS: Urine Bacteria NONE SEEN /hpf (None Seen); Urine Blood TRACE /uL (Negative); Urine Hyaline Cast MANY /lpf (0 - 2); Urine Mucus FEW (None Seen); Urine Specific Gravity 1.026 (1.001-1.035); Urine WBC 67 /hpf (0 - 3); Urine WBC Clumps PRESENT /hpf (None Seen)
[2022-09-21] MEDS ORDERED: FUROSEMIDE 20 MG TAB PO SCH (10:00)
[2022-09-21] MEDS: PANTOPRAZOLE 40 MG TAB PO SCH (10:45)
[2022-09-21] MEDS: AMIODARONE HCL 200 MG TAB PO SCH (10:46)
[2022-09-21] MEDS: METOPROLOL TARTRATE 25 MG TAB PO SCH (10:47)
[2022-09-21] MEDS: CITALOPRAM HYDROBR 20 MG TAB PO SCH (10:48)
[2022-09-21] MEDS ORDERED: metOLazone 5 MG TAB PO ONE (13:30)
[2022-09-21] MEDS ORDERED: METOPROLOL TARTRATE 25 MG TAB PO SCH (13:30)
[2022-09-21] MEDS ORDERED: MET50T PO (14:29)
[2022-09-21] MEDS ORDERED: WARFARIN SODIUM 2 MG TAB PO ONE (17:00)
[2022-09-21] MEDS: ATORVASTATIN 20 MG TAB PO SCH (22:55)
[2022-09-21] MEDS: METOPROLOL TARTRATE 50 MG TAB PO SCH (22:55)
[2022-09-22 06:39] LABS: INR 2.2 (0.9-1.15); Partial Thromboplastin Time 30.9 sec (24.6-33.4)
[2022-09-22] MEDS: InsuLIN REG 1unit/0.01ml Soln (100units/ml) SC SCH (06:50)
[2022-09-22] MEDS: ACCU-CHEK COMFORT CURVE STRIP VI SCH (06:50)
[2022-09-22 08:31] VITALS: BP 97/74
[2022-09-22] MEDS ORDERED: FUROSEMIDE 40 MG TAB PO SCH (10:00)
[2022-09-22] MEDS: CITALOPRAM HYDROBR 20 MG TAB PO SCH (10:20)
[2022-09-22] MEDS: PANTOPRAZOLE 40 MG TAB PO SCH (10:20)
[2022-09-22] MEDS: METOPROLOL TARTRATE 50 MG TAB PO SCH (10:21)
[2022-09-22] MEDS: AMIODARONE HCL 200 MG TAB PO SCH (10:22)
== END 2022-09-22 10:58 | disposition home or self-care (01) | DRG 309 ==
LOC: EDBD 12:25 → ER 12:33 → TELE 16:29
PROVIDERS: ADMIT Internal Medicine; ATTEND Internal Medicine
DX: I48.91 Unspecified atrial fibrillation (principal); I50.42 Chronic combined systolic (congestive) and diastolic (congestive) heart failure; I42.9 Cardiomyopathy, unspecified; I11.0 Hypertensive heart disease with heart failure; E11.9 Type 2 diabetes mellitus without complications; E78.5 Hyperlipidemia, unspecified; Z20.822 Contact with and (suspected) exposure to COVID-19; F32.9 Major depressive disorder, single episode, unspecified; F41.9 Anxiety disorder, unspecified; K21.9 Gastro-esophageal reflux disease without esophagitis; J44.9 Chronic obstructive pulmonary disease, unspecified; Z88.0 Allergy status to penicillin; Z82.49 Family history of ischemic heart disease and other diseases of the circulatory system; Z90.49 Acquired absence of other specified parts of digestive tract; Z95.2 Presence of prosthetic heart valve
CPT/HCPCS: 36415; 71045; 74176; 80053; 81001; 82962; 83880; 84484; 85025; 85610; 85730; 87426; 93005; 93306; 96374; 99291; G0378; J1815

== ENCOUNTER 2022-09-29 00:17 | Emergency (ER) | payer OTHER ==
[~2022-09-29] VITALS: Ht 177.8 cm; Wt 82.0 kg
[~2022-09-29 00:17] MED LIST changes: -DEXA6TAB6 PO; -LEVO500T31 PO; +MET50T PO
[2022-09-29 01:15] LABS: Calcium 9.7 mg/dL (8.5-10.1); Eosinophils # (auto) 0.2 10 ^3/uL (0-0.8); Hemoglobin 11.2 g/dL (13.5-17.5); Neutrophils # (auto) 5.1 10 ^3/uL (1.6-8.6); Nucleated Red Blood Cells % 0.1 %; Potassium 4.3 mmol/L (3.5-5.1); White Blood Cell 6.8 10^3/uL (4.4-10.8)
[2022-09-29 01:17] LABS: Basophils # (auto) 0 10 ^3/uL (0-0.2); Basophils % (auto) 0.3 % (0.0-2.0); Eosinophils % (auto) 2.7 % (0.0-7.0); Hematocrit 36.9 % (41.0-53.0); Lymphocytes # (auto) 0.8 10 ^3/uL (0.4-5.4); Mean Corpuscular Hemoglobin 25.3 pg (28.0-32.0); Mean Corpuscular Hgb Conc. 30.3 g/dL (32.0-36.0); Mean Corpuscular Volume 83.4 fL (80.0-100.0); Monocytes # (auto) 0.6 10 ^3/uL (0-1.3); Monocytes % (auto) 9.5 % (0.0-12.0); Neutrophils % (auto) 75.5 % (37.0-80.0); Red Blood Cells 4.43 10^6/uL (4.5-5.90); Red Cell Distribution Width 18.4 % (11.8-14.3)
[2022-09-29 01:18] LABS: Bilirubin, Total 1.1 mg/dL (0.2-1.0); Total Protein 6.5 g/dL (6.4-8.2)
[2022-09-29] MEDS ORDERED: cefTRIAXone 1GM/50ML D5W 50 ML IV ONE (06:45)
[2022-09-29] MEDS ORDERED: AZITHROMYCIN 500MG/ 250ML 250 ML IV ONE (07:45)
[2022-09-29 08:57] LABS: Urine Bacteria NONE SEEN /hpf (None Seen); Urine Blood Negative /uL (Negative); Urine Hyaline Cast FEW /lpf (0 - 2); Urine Mucus FEW (None Seen); Urine WBC 65 /hpf (0 - 3)
[2022-09-29] MEDS ORDERED: LEVO-28 PO (15:25)
[2022-09-29 15:46] VITALS: BP 113/78
== END 2022-09-29 15:52 | disposition home or self-care (01) ==
LOC: ER 00:17 → EDBD 00:17 → ER 15:52
DX: R07.89 Other chest pain (principal); J18.9 Pneumonia, unspecified organism; I10 Essential (primary) hypertension; E11.9 Type 2 diabetes mellitus without complications; I48.91 Unspecified atrial fibrillation; Z90.49 Acquired absence of other specified parts of digestive tract; Z79.01 Long term (current) use of anticoagulants; Z79.899 Other long term (current) drug therapy; Z88.0 Allergy status to penicillin; Z20.822 Contact with and (suspected) exposure to COVID-19
CPT/HCPCS: 36415; 71045; 80053; 81001; 84484; 85025; 87426; 93005; 96365; 96366; 96367; 99284; J0456; J0696